=== PATIENT | female | born 1980 | race Caucasian/White ===

== ENCOUNTER 2016-07-27 09:45 | Emergency (ER) | payer OTHER ==
[~2016-07-27 09:45] MED LIST: ACET500T57 PO; ALBUAER2 INH; OMEP40CA PO
[2016-07-27 10:14] VITALS: TEMP 36.5; Ht 157.5 cm
[2016-07-27] MEDS ORDERED: ONDANSETRON INJ 2 MG/ML 2 ML VIAL IV STA (10:53)
[2016-07-27] MEDS ORDERED: SODIUM CHLORIDE 0.9% 1000ML 1,000 ML IV STA (10:53)
[2016-07-27 11:14] LABS: BASO % 0.2 %; BASO ABS # 0.02 K/uL (0-0.2); COMPLETE YES; EOS % 1.7 %; HEMATOCRIT 38.4 % (37-47); IG% 0.3 %; LYMPH % 7.4 %; LYMPH ABS # 0.92 K/uL (1.2-3.4); MEAN CORPUSCULAR HEMOGLOBIN 27.4 pg (25-34); MEAN CORPUSCULAR HGB CONC 32.6 g/dl (32-36); MEAN PLATELET VOLUME 9.1 fL (7.4-10.4); MONO % 5.6 %; NEUT % 84.8 %; PLATELET COUNT 467 K/uL (130-400); RED BLOOD COUNT 4.57 M/uL (4.2-5.4); WHITE BLOOD COUNT 12.45 K/uL (4.8-10.8)
[2016-07-27 11:23] LABS: ALT/SGPT 40 U/L (12-78); BLOOD UREA NITROGEN 11 mg/dl (7-18); CALCIUM 8.6 mg/dl (8.5-10.1); CARBON DIOXIDE 21 mmol/L (21-32); CHLORIDE 106 mmol/L (98-107); GLUCOSE 107 mg/dl (70-99); SODIUM 139 mmol/L (136-145)
[2016-07-27 11:26] LABS: ALB/GLOB RATIO 0.9 (0.9-2); ALKALINE PHOSPHATASE 77 U/L (45-117); AST/SGOT 23 U/L (15-37)
[2016-07-27 11:38] LABS: URINE APPEARANCE CLEAR (CLEAR); URINE BILIRUBIN NEG (NEG); URINE COLOR YELLOW; URINE NITRITE NEG (NEG); URINE SPECIFIC GRAVITY 1.021 (1.000-1.030); UROBILINOGEN NEG (NEG); ZZUR CULT IF INDIC CLEAN CATCH NO
[2016-07-27 11:47] LABS: MANUAL MICROSCOPIC REQUIRED? NO; REVIEW REQ? NO
--- NOTE | 2016-07-27 12:06 | DIAGNOSTIC IMAGING REPORT ---
ABDOMINAL ULTRASOUND, RIGHT UPPER QUADRANT HISTORY: Right upper quadrant pain. History of cholecystectomy.. COMPARISON: CT of the abdomen and pelvis August 24, 2015 and right upper quadrant ultrasound August 22, 2015. FINDINGS: Liver morphology is normal. Slight dilatation of the common bile duct is similar to prior exam of August 22, 2015, measuring 9 mm. Bowel or stomach is likely within the cholecystectomy bed. An operative bed fluid collection is considered less likely. There is borderline dilatation of the main pancreatic duct which measures 4 mm. The pancreatic head and tail are obscured. This study is compromise by suboptimal penetration. There is no right hydronephrosis. IMPRESSION: 1. Mild biliary ductal dilatation status post cholecystectomy. This is similar to exam of August 22, 2015. 2. Fluid-filled structure within the cholecystectomy bed that likely reflects bowel or stomach. An operative bed fluid collection is considered less likely. 3. Largely obscured pancreas. Electronically signed by: Kody Rodney M.D. 07/27/2016 12:04 PM Dictated Date/Time: 07/27/2016 12:01 PM
--- NOTE | 2016-07-27 13:00 | EMERGENCY ROOM VISIT NOTE ---
History First contact with patient: 10:42 Chief Complaint: ABDOMINAL PAIN Stated Complaint: SEVERE STOMACH AND RIGHT SIDE PAIN Nursing Triage Summary: Patient c/o pain in RUQ of abdomen that radiates into back that started at 0300 this morning. C/o nausea. States has had emetic episodes, last at 0930. Patient called GI doctor who told patient to come to ED. Unable to eat this AM. History of Present Illness The patient is a 36 year old female who presents to the Emergency Room with complaints of right upper quadrant abdominal pain which started suddenly approximately 6 hours ago. She reports that the pain radiates from the right upper quadrant into the back and has been worsening since its onset. She has had vomiting associated with the pain. She has been unable to keep anything down this morning due to the nausea and the pain. She reports that she called her business intelligence manager today who directed her to come to the emergency department. She does have a history of prior cholecystectomy and appendectomy but states she occasionally has pancreatitis due to common bile duct dilatation. She denies any fevers/chills, changes in bowel movements, chest pain, shortness of breath or urinary symptoms. She rates her discomfort a 10/ 10 and has not taken any medication for the pain. Review of Systems A complete 10-point Review of Systems was discussed with the patient, with pertinent positives and negatives listed in the History of Present Illness. All remaining Review of Systems questions can be considered negative unless otherwise specified. Past Medical/Surgical History Medical Problems: (1) Acute pancreatitis (2) Ankle sprain (3) Asthma (4) BENIGN HYPERTENSION (5) Bipolar disorder (6) Essential hypertension (7) External otitis of right ear (8) Gastric polyp (9) History of adenomatous polyp of colon (10) Hypokalemia (11) IBS (irritable bowel syndrome) (12) Injury of right ankle (13) Intermittent palpitations (14) Knee contusion (15) Left ankle injury (16) Left knee injury (17) Pain following oral surgery (18) PERSONAL HISTORY OF GESTATIONAL DIABETES (19) PID (pelvic inflammatory disease) (20) Pyelonephritis, acute (21) Wrist injury Surgical Problems: (1) Hx of appendectomy (2) s/p cholecystectomy (3) s/p EGD (4) s/p partial colectomy (5) S/P removal of left ovary Family History FHx: cancer Social History Smoking Status: Current Every Day Smoker Alcohol Use: none Drug Use: none Marital Status: Housing Status: lives with family Occupation Status: disabled Current/Historical Medications Scheduled Bupropion (Wellbutrin Sr), 200 MG PO QAM Bupropion (Wellbutrin Sr), 200 MG PO DAILY@1400 Clonazepam (Clonazepam), 0.5 MG PO TID Omeprazole (Prilosec), 40 MG PO DAILY Oxcarbazepine (Trileptal), 300 MG PO BID Scheduled PRN Albuterol (Ventolin), 2 PUFFS INH Q4H PRN for Wheezing Promethazine HCl (Promethazine HCl), 25 MG PO Q4H PRN for Nausea or Vomiting Allergies Coded Allergies: Amoxicillin (Verified Allergy, Intermediate, hives, 07/27/16) Aspirin (Verified Allergy, Intermediate, PT. GETS HIVES, 07/27/16) Hydromorphone (Verified Allergy, Intermediate, FELT THROAT DISCOMFORT, SWITCHED TO MSO4 & FINE, 07/27/16) PER PHYSICIAN (DR. TRIVEDI) ON 06/03/10 @ 0910. AJ Ketorolac Tromethamine (Verified Allergy, Intermediate, ulcers in stomach , 07/27/16) Ibuprofen (Verified Allergy, Mild, 07/27/16) Tramadol (Verified Allergy, Mild, headaches, 07/27/16) Adhesives (Verified Allergy, Unknown, ERYTHEMA WITH "ADHESIVE TAPE", ) Ciprofloxacin (Verified Allergy, Unknown, hives, 07/27/16) Clavulanic Acid (Verified Allergy, Unknown, RASH + HIVES, Augmentin, ) Fentanyl (Verified Allergy, Unknown, THROAT TIGHTENS, 07/27/16) Hydralazine (Verified Allergy, Unknown, -, 07/27/16) Meperidine (Verified Allergy, Unknown, UNKN, 07/27/16) Metoclopramide (Verified Allergy, Unknown, SHAKING/TREMORS, 07/27/16) PT IS ALLERGIC PER DR. FOSTER Penicillins (Verified Allergy, Unknown, RASH,HIVES ALSO AUGMENTIN, 07/27) PT. STATES SHE GETS A RASH/HIVES FROM PCN Quinolones (Verified Allergy, Unknown, RASH, 07/27/16) Diphenhydramine (Verified Adverse Reaction, Intermediate, anxiety, 07/27/16 ) Prednisone (Verified Adverse Reaction, Unknown, worsening anxiety, 07/27/16 ) pt Physical Exam Vital Signs Date Time Temp Pulse Resp B/P Pulse Ox O2 Delivery O2 Flow Rate FiO2 07/27/16 13:10 85 19 119/82 97 07/27/16 12:05 86 22 127/89 99 Room Air 07/27/16 10:14 36.5 100 20 129/102 99 Room Air Physical Exam VITALS: Vitals are noted on the nurse's note and reviewed by myself. Vital signs stable. GENERAL: This is a 36-year-old female, in no acute distress, nondiaphoretic, well-developed well-nourished. SKIN: Capillary reflex less than 2 seconds. HEENT: Normocephalic. PERRLA. EOMI. Nares patent. Mucous membranes moist. Neck is supple without nuchal rigidity. HEART: Regular rate and rhythm without murmurs gallops or rubs. LUNGS: Clear to auscultation bilaterally without wheezes, rales or rhonchi. ABDOMEN: Positive bowel sounds x 4. There is tenderness to palpation of the right upper quadrant. Maguire sign negative. No guarding or rebound tenderness. NEURO: Patient was alert and oriented to person place and time. Medical Decision & Procedures ER Provider Diagnostic Interpretation: ABDOMINAL ULTRASOUND, RIGHT UPPER QUADRANT HISTORY: Right upper quadrant pain. History of cholecystectomy.. COMPARISON: CT of the abdomen and pelvis August 24, 2015 and right upper quadrant ultrasound August 22, 2015. FINDINGS: Liver morphology is normal. Slight dilatation of the common bile duct is similar to prior exam of August 22, 2015, measuring 9 mm. Bowel or stomach is likely within the cholecystectomy bed. An operative bed fluid collection is considered less likely. There is borderline dilatation of the main pancreatic duct which measures 4 mm. The pancreatic head and tail are obscured. This study is compromise by suboptimal penetration. There is no right hydronephrosis. IMPRESSION: 1. Mild biliary ductal dilatation status post cholecystectomy. This is similar to exam of August 22, 2015. 2. Fluid-filled structure within the cholecystectomy bed that likely reflects bowel or stomach. An operative bed fluid collection is considered less likely. 3. Largely obscured pancreas. Laboratory Results 07/27/16 10:44 Red Blood Count 4.57, Mean Corpuscular Volume 84.0, Mean Corpuscular Hemoglobin 27.4, Mean Corpuscular Hemoglobin Concent 32.6, Mean Platelet Volume 9.1, Neutrophils (%) (Auto) 84.8, Lymphocytes (%) (Auto) 7.4, Monocytes (%) (Auto) 5.6, Eosinophils (%) (Auto) 1.7, Basophils (%) (Auto) 0.2, Neutrophils # (Auto) 10.56, Lymphocytes # (Auto) 0.92, Monocytes # (Auto) 0.70, Eosinophils # (Auto) 0.21, Basophils # (Auto) 0.02 07/27/16 10:44 Test 07/27/16 10:30 07/27/16 10:44 Urine Color YELLOW Urine Appearance CLEAR (CLEAR) Urine pH 5.0 (4.5-7.5) Urine Specific Gunter 1.021 (1.000-1.030) Urine Protein NEG (NEG) Urine Glucose (UA) NEG (NEG) Urine Ketones NEG (NEG) Urine Occult Blood NEG (NEG) Urine Nitrite NEG (NEG) Urine Bilirubin NEG (NEG) Urine Urobilinogen NEG (NEG) Urine Leukocyte Esterase NEG (NEG) Urine Test NEG (NEG) White Blood Count 12.45 K/uL (4.8-10.8) Red Blood Count 4.57 M/uL (4.2-5.4) Hemoglobin 12.5 g/dL (12.0-16.0) Hematocrit 38.4 % (37-47) Mean Corpuscular Volume 84.0 fL (80-100) Mean Corpuscular Hemoglobin 27.4 pg (25-34) Mean Corpuscular Hemoglobin Concent 32.6 g/dl (32-36) Platelet Count 467 K/uL (130-400) Mean Platelet Volume 9.1 fL (7.4-10.4) Neutrophils (%) (Auto) 84.8 % Lymphocytes (%) (Auto) 7.4 % Monocytes (%) (Auto) 5.6 % Eosinophils (%) (Auto) 1.7 % Basophils (%) (Auto) 0.2 % Neutrophils # (Auto) 10.56 K/uL (1.4-6.5) Lymphocytes # (Auto) 0.92 K/uL (1.2-3.4) Monocytes # (Auto) 0.70 K/uL (0.11-0.59) Eosinophils # (Auto) 0.21 K/uL (0-0.5) Basophils # (Auto) 0.02 K/uL (0-0.2) RDW Standard Deviation 40.7 fL (36.4-46.3) RDW Coefficient of Variation 13.4 % (11.5-14.5) Immature Granulocyte % (Auto) 0.3 % Immature Granulocyte # (Auto) 0.04 K/uL (0.00-0.02) Anion Gap 12.0 mmol/L (3-11) Estimated GFR () 96.7 Estimated GFR (Non- 83.4 BUN/Creatinine Ratio 12.0 (10-20) Calcium Level 8.6 mg/dl (8.5-10.1) Total Bilirubin 0.1 mg/dl (0.2-1) Aspartate Amino Transf (AST/SGOT) 23 U/L (15-37) Alanine Aminotransferase (ALT/SGPT) 40 U/L (12-78) Alkaline Phosphatase 77 U/L (45-117) Total Protein 7.6 gm/dl (6.4-8.2) Albumin 3.7 gm/dl (3.4-5.0) Globulin 3.9 gm/dl (2.5-4.0) Albumin/Globulin Ratio 0.9 (0.9-2) Lipase 515 U/L (73-393) Medications Administered Medications (Trade) Dose Ordered Sig/Farooq Route Start Time Stop Time Status Last Admin Dose Admin Sodium Chloride (Nss 1000ml) 1,000 ml @ 999 mls/hr Q1H1M STAT IV 07/27/16 10:53 07/27/16 11:53 DC 07/27/16 12:05 999 MLS/HR Ondansetron HCl (Zofran Inj) 4 mg NOW STAT IV 07/27/16 10:53 07/27/16 10:56 DC 07/27/16 12:05 4 MG Medical Decision Differential diagnosis includes pancreatitis, hepatitis, gastroenteritis, colitis, gastritis, among others. The patient was evaluated as above. Labs were drawn and IV access was obtained. Imaging studies were performed and read by radiology as above. The patient was medicated with 1 L normal saline solution and 4 mg Zofran IV. The patient was reassessed multiple times during their stay in the emergency department and remained in stable condition. The patient is a and [id number] who presents today complaining of severe right upper quadrant abdominal pain. Labs revealed a mild leukocytosis consistent with stress or vomiting. There was no anemia or concern any of the joint abnormalities. LFTs and bilirubin were not elevated. Urinalysis was not suggestive of infection. Urine was negative. Right upper quadrant ultrasound did not show any evidence of acute inflammatory changes. Lipase was minimally elevated, but does not need criteria for pancreatitis. Review of the patient's records does show that she has been here multiple times in the past for abdominal pain and has had negative workups. I do not see anything that suggests any acute infectious or inflammatory findings within the abdomen. I did speak with the on-call business intelligence manager, who does not feel that the patient has pancreatitis and recommended that she follow up with her business intelligence manager within the next few days. I did discuss these findings and the treatment plan with the patient. She will return sooner for any new/ concerning symptoms, otherwise she will follow-up with her primary care provider and gastroenterology. Based on the patient's presentation, lab results, and imaging studies, I feel the patient is stable for outpatient treatment. Discharge instructions were reviewed with the patient. The patient verbalized understanding of my assessment and treatment plan and was discharged home in good condition. Impression Primary Impression: Right upper quadrant abdominal pain Departure Information Dispostion Home / Self-Care Condition GOOD Referrals Perez Richter M.D. (PCP) Jorden Cat, DO Patient Instructions My [facility] Additional Instructions You have been treated in the Emergency Department for Abdominal Pain. Laboratory results and imaging studies have ruled out any emergent causes for your abdominal pain which would warrant admission or surgery. For pain control, you can use the following [id number] medicines (if >12 yo): - Regular strength (325mg/tab) Tylenol (acetaminophen) 2 tabs every 4-6 hours as needed. Do not exceed 12 tablets in a 24 hour period. Avoid taking more than 4 grams (4000 mg) of Tylenol per day. This includes any other sources of acetaminophen you may take on a regular basis. - Regular strength (200 mg/tab) Advil (ibuprofen) 1-2 tabs every 4-6 hours as needed. Do not exceed a dose of 3200 mg per day. Drink plenty of water and stay well hydrated. Follow-up with your primary care provider business intelligence manager further evaluation of your abdominal pain. Return to the emergency department if your symptoms persist despite treatment plan outlined above or if the following symptoms occur: increased fevers, chills , worsening nausea/vomiting, blood in your stool or urine.
[2016-07-27 13:10] VITALS: BP 119/82; PULSE 85; O2SAT 97
[2017-01-12] MEDS ORDERED: BUPR200T2 PO ×2 (14:29→20:58)
[2017-01-12] MEDS ORDERED: PROM25TA16 PO (15:17)
[2017-01-12] MEDS ORDERED: KLN5X PO (15:36)
[2017-01-12] MEDS ORDERED: OXCA300T2 PO (16:01)
[2017-01-12] MEDS ORDERED: ACET-1256 PO (17:13)
== END 2016-07-27 13:10 | disposition home or self-care (01) ==
LOC: C.EDB 09:46
DX: R10.11 Right upper quadrant pain (principal); I10 Essential (primary) hypertension; F31.9 Bipolar disorder, unspecified; F17.210 Nicotine dependence, cigarettes, uncomplicated

== ENCOUNTER 2016-09-27 15:24 | Emergency (ER) | payer OTHER ==
[~2016-09-27] VITALS: Ht 157.5 cm; Wt 75.3 kg
[~2016-09-27 15:24] MED LIST changes: -ACET500T57 PO
[2016-09-27 15:51] VITALS: Ht 157.5 cm; Wt 75.3 kg
[2016-09-27] MEDS ORDERED: BENZ100C84 PO (17:12)
[2016-09-27] MEDS ORDERED: AZITTAB PO (17:12)
[2016-09-27] MEDS ORDERED: ALBUT/IPRATROP 3MG/0.5MG NEB 3 ML VIAL INH ONE (17:15)
[2016-09-27] MEDS ORDERED: ACETAMINOPHEN 500 MG TAB PO STA (17:29)
--- NOTE | 2016-09-27 17:32 | DIAGNOSTIC IMAGING REPORT ---
CHEST 2 VIEWS ROUTINE CLINICAL HISTORY: Cough. Fever. Dyspnea COMPARISON STUDY: No previous studies for comparison. FINDINGS: The bones soft tissues and hemidiaphragms are normal. The cardiomediastinal silhouette is normal. The lungs are clear. The pulmonary vasculature is normal. IMPRESSION: Negative chest. Electronically signed by: Perez Mirza M.D. 09/27/2016 5:31 PM Dictated Date/Time: 09/27/2016 5:31 PM
[2016-09-27] MEDS ORDERED: VNTHFA/IN INH (18:10)
[2016-09-27 18:21] VITALS: BP 121/76; PULSE 88; TEMP 37; O2SAT 98
--- NOTE | 2016-09-27 21:47 | EMERGENCY ROOM VISIT NOTE ---
History First contact with patient: 16:51 Chief Complaint: COUGH Stated Complaint: COUGH, HEAD PAIN Nursing Triage Summary: pt reports cough congestion X 1 week , PCP on Th given cough meds and zpak, not feeling better History of Present Illness The patient is a 36 year old female who presents to the Emergency Room with complaints of persistent cough and chest congestion for the past week. The patient was seen and evaluated by her primary care physician this week and started on Zithromax. She was also given Tessalon Perles. The patient does not have worsening of her symptoms, but she states that she is not improving, prompting her to come to the ER. The patient has not had fever at home. She is reportedly taking her medications as prescribed. She states that time her cough will give her a headache, and she is requesting something for pain. She rates her discomfort a 9/10. Review of Systems More than 10 systems were reviewed and otherwise negative with the exception of history of present illness. Past Medical/Surgical History Medical Problems: (1) Acute pancreatitis (2) Ankle sprain (3) Asthma (4) BENIGN HYPERTENSION (5) Bipolar disorder (6) Essential hypertension (7) External otitis of right ear (8) Gastric polyp (9) History of adenomatous polyp of colon (10) Hypokalemia (11) IBS (irritable bowel syndrome) (12) Injury of right ankle (13) Intermittent palpitations (14) Knee contusion (15) Left ankle injury (16) Left knee injury (17) Pain following oral surgery (18) PERSONAL HISTORY OF GESTATIONAL DIABETES (19) PID (pelvic inflammatory disease) (20) Pyelonephritis, acute (21) Wrist injury Surgical Problems: (1) Hx of appendectomy (2) s/p cholecystectomy (3) s/p EGD (4) s/p partial colectomy (5) S/P removal of left ovary Family History FHx: cancer Social History Smoking Status: Current Every Day Smoker Alcohol Use: none Drug Use: none Marital Status: Housing Status: lives with family Occupation Status: disabled Current/Historical Medications Scheduled Albuterol Hfa (Ventolin Hfa), 2-4 PUFFS INH Q6H Azithromycin (Zithromax Z-Roni), 1 PKT PO UD Benzonatate (Tessalon Perles), 1 CAP PO TID Bupropion (Wellbutrin Sr), 200 MG PO QAM Bupropion (Wellbutrin Sr), 200 MG PO DAILY@1400 Clonazepam (Clonazepam), 0.5 MG PO TID Omeprazole (Prilosec), 40 MG PO DAILY Oxcarbazepine (Trileptal), 300 MG PO BID Scheduled PRN Acetaminophen (Tylenol), 2 TAB PO Q6 PRN for Pain Albuterol (Ventolin), 2 PUFFS INH Q4H PRN for Wheezing Promethazine HCl (Promethazine HCl), 25 MG PO Q4H PRN for Nausea or Vomiting Allergies Coded Allergies: Amoxicillin (Verified Allergy, Intermediate, hives, 09/27/16) Aspirin (Verified Allergy, Intermediate, PT. GETS HIVES, 09/27/16) Dicyclomine (Unverified Allergy, Intermediate, RASH, 09/27/16) Hydromorphone (Verified Allergy, Intermediate, FELT THROAT DISCOMFORT, SWITCHED TO MSO4 & FINE, 09/27/16) PER PHYSICIAN (DR. TRIVEDI) ON 06/03/10 @ 0910. AJ Ketorolac Tromethamine (Verified Allergy, Intermediate, ulcers in stomach , 09/27/16) Ibuprofen (Verified Allergy, Mild, 09/27/16) Tramadol (Verified Allergy, Mild, headaches, 09/27/16) Adhesives (Verified Allergy, Unknown, ERYTHEMA WITH "ADHESIVE TAPE", ) Ciprofloxacin (Verified Allergy, Unknown, hives, 09/27/16) Clavulanic Acid (Verified Allergy, Unknown, RASH + HIVES, Augmentin, ) Fentanyl (Verified Allergy, Unknown, THROAT TIGHTENS, 09/27/16) Hydralazine (Verified Allergy, Unknown, -, 09/27/16) Meperidine (Verified Allergy, Unknown, UNKN, 09/27/16) Metoclopramide (Verified Allergy, Unknown, SHAKING/TREMORS, 09/27/16) PT IS ALLERGIC PER DR. FOSTER Penicillins (Verified Allergy, Unknown, RASH,HIVES ALSO AUGMENTIN, 09/27) PT. STATES SHE GETS A RASH/HIVES FROM PCN Quinolones (Verified Allergy, Unknown, RASH, 09/27/16) Diphenhydramine (Verified Adverse Reaction, Intermediate, anxiety, 09/27/16 ) Prednisone (Verified Adverse Reaction, Unknown, worsening anxiety, 09/27/16 ) pt Physical Exam Vital Signs Date Time Temp Pulse Resp B/P Pulse Ox O2 Delivery O2 Flow Rate FiO2 09/27/16 18:21 37.0 88 18 121/76 98 09/27/16 15:51 37.0 97 18 137/97 98 Room Air Pain Rating (0-10): 4.0 Physical Exam VITALS: Vitals are noted on the nurse's note and reviewed by myself. Vital signs stable. GENERAL: Well-developed, well-nourished, white female, who is in no acute distress and resting comfortably. Patient is cooperative with the examination. HEAD: Normocephalic atraumatic. EARS: External ear normal. External auditory canals clear, tympanic membranes pearly britton without erythema or effusion bilaterally. EYES: Pupils equal round and reactive to light and accommodation. Conjunctivae without injection, sclerae without icterus. Extraocular movements intact. NOSE: Patent, turbinates without inflammation or discharge. MOUTH: Mucous membranes moist. Tonsils are not enlarged. Pharynx without erythema, blood, or exudate. Uvula midline. Airway patent. NECK: Supple without nuchal rigidity. No lymphadenopathy. No thyromegaly. Cervical spine is nontender. HEART: Regular rate and rhythm without murmurs gallops or rubs. LUNGS: Clear to auscultation bilaterally without wheezes, rales or rhonchi. No retractions or accessory muscle use. Medical Decision & Procedures ER Provider Diagnostic Interpretation: CHEST 2 VIEWS ROUTINE CLINICAL HISTORY: Cough. Fever. Dyspnea COMPARISON STUDY: No previous studies for comparison. FINDINGS: The bones soft tissues and hemidiaphragms are normal. The cardiomediastinal silhouette is normal. The lungs are clear. The pulmonary vasculature is normal. IMPRESSION: Negative chest. Medications Administered Medications (Trade) Dose Ordered Sig/Farooq Route Start Time Stop Time Status Last Admin Dose Admin Albuterol/ Ipratropium (Duoneb) 3 ml NOW ONCE INH 09/27/16 17:15 09/27/16 17:16 DC 09/27/16 17:24 3 ML ED Course Physical exam and history were performed. Nursing notes and EMR were reviewed. Patient appears to have persistent cough symptoms for the past week. She was reportedly diagnosed with bronchitis as an outpatient. On examination she does not appear toxic or in significant distress. She does have a mild dry cough, and I elected to perform chest x-ray and provide a DuoNeb treatment. The patient requested pain medication for her headache, and she was given 1 g oral Tylenol. The patient was reevaluated multiple times throughout the course of her stay. She did have some improvement of her breathing after a DuoNeb. Chest x-ray does not show acute pneumonia or other significant findings. Overall the patient appears stable for discharge home. I do suspect that she has an improving bronchitis. She does have an albuterol inhaler at home, but has not been using this. She states that she is almost out of this medication, and I will provide her a refill. The patient went on to request codeine based cough syrup for her persistent cough. I reminded the patient that she is on a no narcotic treatment plan at this facility, and we would not be able to provide this to her. She should follow with her primary care physician for further management. She was otherwise invited back to the ER with any new, worsening, or concerning symptoms. The chart was completed utilizing [employer] Speech Voice Recognition Software. Grammatical errors, random word insertions, pronoun errors, and incomplete sentences are an occasional consequence of this system due to software limitations, ambient noise, and hardware issues. Any formal questions or concerns about the content, text, or information contained within the body of this dictation should be directly addressed to the provider for clarification. . Medical Decision Differential diagnosis: Etiologies such as viral syndrome, otitis, pharyngitis, pneumonia, influenza, meningitis, urinary tract infection, sepsis, bacteremia, as well as others were entertained. Impression Primary Impression: Acute bronchitis Departure Information Dispostion Home / Self-Care Condition GOOD Prescriptions Albuterol Hfa (VENTOLIN HFA) 200 Puffs/09939 Mcg Aers 2-4 PUFFS INH Q6H, #1 INHALER Prov: Ari Huynh PA-C 09/27/16 Referrals Mckenzie Jennings D.O. (PCP) Forms HOME CARE DOCUMENTATION FORM, IMPORTANT VISIT INFORMATION Patient Instructions My [facility] Additional Instructions You were seen and evaluated today on an emergency basis only. This is not a substitute for, or an effort to provide, complete comprehensive medical care. It is not possible to recognize and treat all injuries or illnesses in a single emergency department visit. For this reason it is recommended that you followup with your primary care physician this week with any ongoing or persistent symptoms. Use your albuterol inhaler 2 puffs every 6 hours as needed for coughing and wheezing. Continue your medications as otherwise previously prescribed. You are welcome to return to the emergency department anytime with new, worsening, or concerning symptoms.
[2017-01-12] MEDS ORDERED: BUPR200T2 PO ×2 (14:29→20:58)
[2017-01-12] MEDS ORDERED: PROM25TA16 PO (15:17)
[2017-01-12] MEDS ORDERED: KLN5X PO (15:36)
[2017-01-12] MEDS ORDERED: OXCA300T2 PO (16:01)
[2017-01-12] MEDS ORDERED: ACET-1256 PO (17:13)
== END 2016-09-27 18:15 | disposition home or self-care (01) ==
LOC: C.EDB 15:26 → C.EDD 18:15
DX: J20.9 Acute bronchitis, unspecified (principal); I10 Essential (primary) hypertension; J45.909 Unspecified asthma, uncomplicated; K85.90 Acute pancreatitis without necrosis or infection, unspecified; F31.9 Bipolar disorder, unspecified; Z86.010 Personal history of colon polyps; E87.6 Hypokalemia; K58.9 Irritable bowel syndrome, unspecified; N73.9 Female pelvic inflammatory disease, unspecified; N10 Acute pyelonephritis; Z80.9 Family history of malignant neoplasm, unspecified; F17.210 Nicotine dependence, cigarettes, uncomplicated; Z79.899 Other long term (current) drug therapy

== ENCOUNTER 2016-11-16 21:32 | Emergency (ER) | payer OTHER ==
[~2016-11-16] VITALS: Ht 157.5 cm; Wt 76.8 kg
[~2016-11-16 21:32] MED LIST changes: +AZITTAB PO; +BENZ100C84 PO; +VNTHFA/IN INH
[2016-11-16 21:35] VITALS: TEMP 36.8; Ht 157.5 cm; Wt 76.8 kg
[2016-11-16] MEDS ORDERED: SODIUM CHLORIDE 0.9% 1000ML 1,000 ML IV ONE (22:00)
[2016-11-16 22:18] LABS: BASO % 0.4 %; BASO ABS # 0.03 K/uL (0-0.2); COMPLETE YES; EOS % 4.3 %; HEMATOCRIT 38.1 % (37-47); IG% 0.4 %; LYMPH % 30.6 %; LYMPH ABS # 2.35 K/uL (1.2-3.4); MEAN CELL VOLUME 83.6 fL (80-100); MEAN CORPUSCULAR HEMOGLOBIN 26.3 pg (25-34); MEAN CORPUSCULAR HGB CONC 31.5 g/dl (32-36); MEAN PLATELET VOLUME 8.8 fL (7.4-10.4); MONO % 8.2 %; NEUT % 56.1 %; PLATELET COUNT 500 K/uL (130-400); RED BLOOD COUNT 4.56 M/uL (4.2-5.4); WHITE BLOOD COUNT 7.67 K/uL (4.8-10.8)
[2016-11-16 22:38] LABS: MANUAL MICROSCOPIC REQUIRED? NO; REVIEW REQ? NO; URINE APPEARANCE CLOUDY (CLEAR); URINE BILIRUBIN NEG (NEG); URINE COLOR DK YELLOW; URINE EPITHELIAL CELL AUTO >30 /lpf (0-5); URINE NITRITE NEG (NEG); UROBILINOGEN NEG (NEG); ZZUR CULT IF INDIC CLEAN CATCH YES
--- NOTE | 2016-11-16 22:42 | DIAGNOSTIC IMAGING REPORT ---
KUB CLINICAL HISTORY: vague low abd pain pain COMPARISON STUDY: No previous studies for comparison. FINDINGS: The soft tissues, psoas shadows, renal outlines and intestinal gas pattern appear normal. There is no evidence for bowel obstruction. No abnormal abdominal calcifications are seen. IMPRESSION: Normal study. Electronically signed by: Perez Mirza M.D. 11/16/2016 10:41 PM Dictated Date/Time: 11/16/2016 10:41 PM
--- NOTE | 2016-11-16 22:56 | DIAGNOSTIC IMAGING REPORT ---
EXAMINATION: PELVIC ULTRASOUND CLINICAL HISTORY: Low abd/pelvic pain PAIN COMPARISON STUDY: None FINDINGS: The uterus measured 9 cm. The endometrial stripe measured 12 mm. The right ovary measured 3.7 cm with normal vascular flow. 2.9 cm right ovarian cyst. The left ovary measured surgically removed. There is no ultrasonographic evidence of ovarian torsion. It should be noted that ovarian torsion can be present with normal Doppler ultrasonographic findings. There was no evidence of pathologic free pelvic fluid. IMPRESSION: 1. Status post left ovarian removal. 2. 2.9 cm right ovarian cyst. 3. Otherwise negative study Electronically signed by: Perez Mirza M.D. 11/16/2016 10:54 PM Dictated Date/Time: 11/16/2016 10:53 PM
[2016-11-16 23:03] LABS: BUN/CREATININE RATIO 20.3 (10-20); CALCIUM 8.7 mg/dl (8.5-10.1); CREATININE 0.9 mg/dl (0.60-1.20); POTASSIUM 3.8 mmol/L (3.5-5.1)
[2016-11-16 23:04] LABS: BENZODIAZEPINE, URINE NEG (NEG); COCAINE,URINE NEG (NEG); PHENCYCLIDINE, URINE NEG (NEG)
[2016-11-17 00:28] VITALS: BP 115/84; PULSE 63; O2SAT 99
--- NOTE | 2016-11-17 01:49 | EMERGENCY ROOM VISIT NOTE ---
History First contact with patient: 21:40 Chief Complaint: PELVIC PAIN Stated Complaint: PELVIC/ABD/BACK PAIN History of Present Illness The patient is a 36 year old female who presents to the Emergency Room with complaints of very low abdominal/pelvic pain slowly worsening over the past day. The patient reports a history of ovarian cysts, and states this feels similar to those episodes. She rates her pain a 10/10 that is not relieved with Tylenol. She has not had vaginal drainage or discharge. She denies chance of . The patient has not had fever or chills. No dysuria. Review of Systems More than 10 systems were reviewed and otherwise negative with the exception of history of present illness. Past Medical/Surgical History Medical Problems: (1) Acute pancreatitis (2) Ankle sprain (3) Asthma (4) BENIGN HYPERTENSION (5) Bipolar disorder (6) Essential hypertension (7) External otitis of right ear (8) Gastric polyp (9) History of adenomatous polyp of colon (10) Hypokalemia (11) IBS (irritable bowel syndrome) (12) Injury of right ankle (13) Intermittent palpitations (14) Knee contusion (15) Left ankle injury (16) Left knee injury (17) Pain following oral surgery (18) PERSONAL HISTORY OF GESTATIONAL DIABETES (19) PID (pelvic inflammatory disease) (20) Pyelonephritis, acute (21) Wrist injury Surgical Problems: (1) Hx of appendectomy (2) s/p cholecystectomy (3) s/p EGD (4) s/p partial colectomy (5) S/P removal of left ovary Family History FHx: cancer Social History Smoking Status: Current Every Day Smoker Alcohol Use: none Drug Use: none Marital Status: Housing Status: lives with family Occupation Status: disabled Current/Historical Medications Scheduled Bupropion (Wellbutrin Sr), 200 MG PO QAM Bupropion (Wellbutrin Sr), 200 MG PO DAILY@1400 Clonazepam (Clonazepam), 0.5 MG PO TID Omeprazole (Prilosec), 40 MG PO DAILY Oxcarbazepine (Trileptal), 300 MG PO BID Scheduled PRN Acetaminophen (Tylenol), 1,000 MG PO Q6 PRN for Pain Albuterol (Ventolin), 2 PUFFS INH Q4H PRN for Wheezing Promethazine HCl (Promethazine HCl), 25 MG PO Q4H PRN for Nausea or Vomiting Allergies Coded Allergies: Amoxicillin (Verified Allergy, Intermediate, hives, 09/27/16) Aspirin (Verified Allergy, Intermediate, PT. GETS HIVES, 09/27/16) Dicyclomine (Unverified Allergy, Intermediate, RASH, 09/27/16) Hydromorphone (Verified Allergy, Intermediate, FELT THROAT DISCOMFORT, SWITCHED TO MSO4 & FINE, 09/27/16) PER PHYSICIAN (DR. TRIVEDI) ON 06/03/10 @ 0910. AJ Ketorolac Tromethamine (Verified Allergy, Intermediate, ulcers in stomach , 09/27/16) Ibuprofen (Verified Allergy, Mild, 09/27/16) Tramadol (Verified Allergy, Mild, headaches, 09/27/16) Adhesives (Verified Allergy, Unknown, ERYTHEMA WITH "ADHESIVE TAPE", ) Ciprofloxacin (Verified Allergy, Unknown, hives, 09/27/16) Clavulanic Acid (Verified Allergy, Unknown, RASH + HIVES, Augmentin, ) Fentanyl (Verified Allergy, Unknown, THROAT TIGHTENS, 09/27/16) Hydralazine (Verified Allergy, Unknown, -, 09/27/16) Meperidine (Verified Allergy, Unknown, UNKN, 09/27/16) Metoclopramide (Verified Allergy, Unknown, SHAKING/TREMORS, 09/27/16) PT IS ALLERGIC PER DR. FOSTER Penicillins (Verified Allergy, Unknown, RASH,HIVES ALSO AUGMENTIN, 09/27) PT. STATES SHE GETS A RASH/HIVES FROM PCN Quinolones (Verified Allergy, Unknown, RASH, 09/27/16) Diphenhydramine (Verified Adverse Reaction, Intermediate, anxiety, 09/27/16 ) Prednisone (Verified Adverse Reaction, Unknown, worsening anxiety, 09/27/16 ) pt Physical Exam Vital Signs Date Time Temp Pulse Resp B/P Pulse Ox O2 Delivery O2 Flow Rate FiO2 11/17/16 00:28 63 20 115/84 99 Room Air 11/16/16 23:43 68 20 132/87 100 Room Air 11/16/16 21:35 36.8 93 20 136/83 99 Room Air Pain Rating (0-10): 8.0 Physical Exam VITALS: Vitals are noted on the nurse's note and reviewed by myself. Vital signs stable. GENERAL: Well-developed, well-nourished, white female, who is in no acute distress and resting comfortably. Patient is cooperative with the examination. HEAD: Normocephalic atraumatic. HEART: Regular rate and rhythm without murmurs gallops or rubs. LUNGS: Clear to auscultation bilaterally without wheezes, rales or rhonchi. No retractions or accessory muscle use. ABDOMEN: Positive normal bowel sounds x 4. Soft, nontender, without masses or organomegaly. No guarding or rebound tenderness. PELVIC: Patient defers MUSCULOSKELETAL: No muscle atrophy, erythema, or edema noted. Full range of motion without joint tenderness in all extremities. Medical Decision & Procedures ER Provider Diagnostic Interpretation: KUB CLINICAL HISTORY: vague low abd pain pain COMPARISON STUDY: No previous studies for comparison. FINDINGS: The soft tissues, psoas shadows, renal outlines and intestinal gas pattern appear normal. There is no evidence for bowel obstruction. No abnormal abdominal calcifications are seen. IMPRESSION: Normal study. EXAMINATION: PELVIC ULTRASOUND CLINICAL HISTORY: Low abd/pelvic pain PAIN COMPARISON STUDY: None FINDINGS: The uterus measured 9 cm. The endometrial stripe measured 12 mm. The right ovary measured 3.7 cm with normal vascular flow. 2.9 cm right ovarian cyst. The left ovary measured surgically removed. There is no ultrasonographic evidence of ovarian torsion. It should be noted that ovarian torsion can be present with normal Doppler ultrasonographic findings. There was no evidence of pathologic free pelvic fluid. IMPRESSION: 1. Status post left ovarian removal. 2. 2.9 cm right ovarian cyst. 3. Otherwise negative study Laboratory Results 11/16/16 22:00 Red Blood Count 4.56, Mean Corpuscular Volume 83.6, Mean Corpuscular Hemoglobin 26.3, Mean Corpuscular Hemoglobin Concent 31.5, Mean Platelet Volume 8.8, Neutrophils (%) (Auto) 56.1, Lymphocytes (%) (Auto) 30.6, Monocytes (%) (Auto) 8.2, Eosinophils (%) (Auto) 4.3, Basophils (%) (Auto) 0.4, Neutrophils # (Auto) 4.30, Lymphocytes # (Auto) 2.35, Monocytes # (Auto) 0.63, Eosinophils # (Auto) 0.33, Basophils # (Auto) 0.03 11/16/16 22:00 Test 11/16/16 22:00 White Blood Count 7.67 K/uL (4.8-10.8) Red Blood Count 4.56 M/uL (4.2-5.4) Hemoglobin 12.0 g/dL (12.0-16.0) Hematocrit 38.1 % (37-47) Mean Corpuscular Volume 83.6 fL (80-100) Mean Corpuscular Hemoglobin 26.3 pg (25-34) Mean Corpuscular Hemoglobin Concent 31.5 g/dl (32-36) Platelet Count 500 K/uL (130-400) Mean Platelet Volume 8.8 fL (7.4-10.4) Neutrophils (%) (Auto) 56.1 % Lymphocytes (%) (Auto) 30.6 % Monocytes (%) (Auto) 8.2 % Eosinophils (%) (Auto) 4.3 % Basophils (%) (Auto) 0.4 % Neutrophils # (Auto) 4.30 K/uL (1.4-6.5) Lymphocytes # (Auto) 2.35 K/uL (1.2-3.4) Monocytes # (Auto) 0.63 K/uL (0.11-0.59) Eosinophils # (Auto) 0.33 K/uL (0-0.5) Basophils # (Auto) 0.03 K/uL (0-0.2) RDW Standard Deviation 45.0 fL (36.4-46.3) RDW Coefficient of Variation 14.7 % (11.5-14.5) Immature Granulocyte % (Auto) 0.4 % Immature Granulocyte # (Auto) 0.03 K/uL (0.00-0.02) Urine Color DK YELLOW Urine Appearance CLOUDY (CLEAR) Urine pH 5.0 (4.5-7.5) Urine Specific [place] 1.040 (1.000-1.030) Urine Protein NEG (NEG) Urine Glucose (UA) NEG (NEG) Urine Ketones NEG (NEG) Urine Occult Blood 1+ (NEG) Urine Nitrite NEG (NEG) Urine Bilirubin NEG (NEG) Urine Urobilinogen NEG (NEG) Urine Leukocyte Esterase NEG (NEG) Urine WBC (Auto) 1-5 /hpf (0-5) Urine RBC (Auto) 0-4 /hpf (0-4) Urine Hyaline Casts (Auto) 5-10 /lpf (0-5) Urine Epithelial Cells (Auto) >30 /lpf (0-5) Urine Bacteria (Auto) 1+ (NEG) Urine Test NEG (NEG) Anion Gap 8.0 mmol/L (3-11) Est Creatinine Clear Calc Drug Dose 84.5 ml/min Estimated GFR () 96.7 Estimated GFR (Non- 83.4 BUN/Creatinine Ratio 20.3 (10-20) Calcium Level 8.7 mg/dl (8.5-10.1) Total Bilirubin 0.1 mg/dl (0.2-1) Aspartate Amino Transf (AST/SGOT) 17 U/L (15-37) Alanine Aminotransferase (ALT/SGPT) 23 U/L (12-78) Alkaline Phosphatase 67 U/L (45-117) Total Protein 6.9 gm/dl (6.4-8.2) Albumin 3.5 gm/dl (3.4-5.0) Globulin 3.4 gm/dl (2.5-4.0) Albumin/Globulin Ratio 1.0 (0.9-2) Lipase 287 U/L (73-393) Chemistry Specimen Hemolysis Urine Opiates Screen POS (NEG) Urine Methadone, Qualitative NEG (NEG) Urine Barbiturates NEG (NEG) Urine Phencyclidine (PCP) Level NEG (NEG) Ur Amphetamine/Methamphetamine POS (NEG) MDMA (Ecstasy) Screen POS (NEG) Urine Benzodiazepines Screen NEG (NEG) Urine Cocaine Metabolite NEG (NEG) Urine Marijuana (THC) NEG (NEG) Medications Administered Medications (Trade) Dose Ordered Sig/Farooq Route Start Time Stop Time Status Last Admin Dose Admin Sodium Chloride (Nss 1000ml) 1,000 ml @ 999 mls/hr Q1H1M ONCE IV 11/16/16 22:00 11/16/16 23:00 DC 11/16/16 22:02 999 MLS/HR ED Course Physical exam and history were performed. Nursing notes and EMR were reviewed. Patient appears to have reports of low abdominal/pelvic pain. The patient is well-known to this facility and is on a no narcotic treatment plan. She is requesting pain medication, and I did offer her Tylenol, but she refused. Additionally the patient does defer a pelvic exam. IV access was established and labs were obtained. The patient was hydrated with normal saline. X-ray and ultrasound were performed. I considered but elected to defer CT imaging pending the patient's evaluation as she has had several CT scans over the years. The patient's blood work is as above and was reviewed. She does not have a significantly elevated white blood cell count, anemia, bandemia, or significant electrolyte imbalance. Lipase and transaminases are nondiagnostic. KUB does not show significant findings. Ultrasound does show a right ovarian cyst. Urine is without gross infection with culture pending. Drug of abuse screen was positive for opioids and amphetamines. It was also positive for ecstasy, however I suspect this is from her psychiatric medications. Overall the patient appears stable for discharge home. I do not appreciate an acute life-threatening etiology for her symptoms. She continued to be without significant abdominal tenderness on exam. The patient will be asked to follow with her [facility] and primary care physician for further management. She was not given narcotics at this visit despite asking several times. The chart was completed utilizing [employer] Speech Voice Recognition Software. Grammatical errors, random word insertions, pronoun errors, and incomplete sentences are an occasional consequence of this system due to software limitations, ambient noise, and hardware issues. Any formal questions or concerns about the content, text, or information contained within the body of this dictation should be directly addressed to the provider for clarification. . Medical Decision Differential diagnosis: Etiologies such as appendicitis, diverticulitis, PUD, biliary pathology, UTI, pancreatitis, obstruction, mesenteric ischemia, aortic pathology, infections, inflammatory bowel disease, renal colic, as well as others were entertained. Impression Primary Impression: Pelvic pain Departure Information Dispostion Home / Self-Care Condition GOOD Forms HOME CARE DOCUMENTATION FORM, IMPORTANT VISIT INFORMATION Patient Instructions My [facility] Additional Instructions You were seen and evaluated today on an emergency basis only. This is not a substitute for, or an effort to provide, complete comprehensive medical care. It is not possible to recognize and treat all injuries or illnesses in a single emergency department visit. For this reason it is recommended that you followup with [facility] for ongoing care and evaluation. Take Tylenol 1000 mg every 6-8 hours as needed. You are welcome to return to the emergency department anytime with new, worsening, or concerning symptoms.
[2017-01-12] MEDS ORDERED: BUPR200T2 PO ×2 (14:29→20:58)
[2017-01-12] MEDS ORDERED: PROM25TA16 PO (15:17)
[2017-01-12] MEDS ORDERED: KLN5X PO (15:36)
[2017-01-12] MEDS ORDERED: OXCA300T2 PO (16:01)
[2017-01-12] MEDS ORDERED: ACET-1256 PO (17:13)
== END 2016-11-17 00:30 | disposition home or self-care (01) ==
LOC: C.EDB 21:33
DX: R10.2 Pelvic and perineal pain (principal); I10 Essential (primary) hypertension; F31.9 Bipolar disorder, unspecified; K58.9 Irritable bowel syndrome, unspecified; J45.909 Unspecified asthma, uncomplicated; Z79.899 Other long term (current) drug therapy; Z87.19 Personal history of other diseases of the digestive system; Z87.42 Personal history of other diseases of the female genital tract; Z87.828 Personal history of other (healed) physical injury and trauma; F17.200 Nicotine dependence, unspecified, uncomplicated

== ENCOUNTER 2016-11-30 18:55 | Emergency (ER) | payer OTHER ==
[~2016-11-30] VITALS: Ht 157.5 cm; Wt 73.3 kg
[~2016-11-30 18:55] MED LIST changes: -AZITTAB PO; -BENZ100C84 PO; -VNTHFA/IN INH
[2016-11-30 19:13] VITALS: TEMP 36.7; Ht 157.5 cm; Wt 73.3 kg
[2016-11-30] MEDS ORDERED: ONDANSETRON INJ 2 MG/ML 2 ML VIAL IV STA (19:49)
[2016-11-30] MEDS ORDERED: SODIUM CHLORIDE 0.9% 1000ML 1,000 ML IV ONE (20:00)
[2016-11-30 20:59] LABS: BASO % 0.6 %; BASO ABS # 0.04 K/uL (0-0.2); COMPLETE YES; EOS % 0.9 %; HEMATOCRIT 39.5 % (37-47); IG% 0.3 %; LYMPH % 25.2 %; LYMPH ABS # 1.67 K/uL (1.2-3.4); MEAN CELL VOLUME 81.3 fL (80-100); MEAN CORPUSCULAR HEMOGLOBIN 27.2 pg (25-34); MEAN CORPUSCULAR HGB CONC 33.4 g/dl (32-36); MEAN PLATELET VOLUME 8.5 fL (7.4-10.4); MONO % 6.2 %; NEUT % 66.8 %; PLATELET COUNT 499 K/uL (130-400); RED BLOOD COUNT 4.86 M/uL (4.2-5.4); WHITE BLOOD COUNT 6.63 K/uL (4.8-10.8)
[2016-11-30 21:12] VITALS: BP 129/96
[2016-11-30 21:23] LABS: BLOOD UREA NITROGEN 19 mg/dl (7-18); BUN/CREATININE RATIO 17.5 (10-20); CARBON DIOXIDE 27 mmol/L (21-32); CHLORIDE 101 mmol/L (98-107); GLUCOSE 85 mg/dl (70-99); SODIUM 135 mmol/L (136-145)
[2016-11-30 22:01] LABS: CALCIUM 9.3 mg/dl (8.5-10.1)
[2016-11-30 22:18] LABS: ISTAT HEMOGLOBIN 13.6 g/dl (12.0-16.0); ISTAT IONIZED CALCIUM 1.11 mmol/l (1.12-1.32)
[2016-11-30 22:38] VITALS: PULSE 76; O2SAT 99
--- NOTE | 2016-12-01 01:40 | EMERGENCY ROOM VISIT NOTE ---
ED Visit Note First contact with patient: 19:22 Chief Complaint: Dental pain. History of Present Illness: Ms. Tejeda is a 36-year-old white female who ambulates into the ED accompanied by female friend complaining of dental pain and concerns for possible low serum potassium levels. Historically patient reports she has a history of hypokalemia. Patient reports 4 days ago she had dental surgery to prepare her mouth for dentures. She reports since that time she has been having moderate to severe dental pain. She does report that she was prescribed Vicodin for her pain but does not feel it is working. Currently she places her discomfort over both the maxillary and mandibular alveolar ridge. She describes this discomfort as a throbbing, achy and sharp sensation. She rates her discomfort 8/10. Her pain is nonradiating. Her pain worsens with eating and palpation. She has not identified any alleviating factors related to the pain. Associated with her pain she reports she has not been eating and has been intermittently nauseated; this causes her concerns for her hypokalemia. She denies fevers, chills, sweats, skin eruptions, skin color changes, difficulty swallowing, painful talking, drooling, throat pain, neck pain/ stiffness, shortness of breath, chest pain, vomiting, facial swelling. Review of Systems: As noted above in history of present illness. 8 body systems were reviewed and found to be negative as noted above. Past Medical History: As previously noted, pancreatitis, asthma, hypertension, bipolar disorder, year-old bowel syndrome, migraine headaches, gestational diabetes, PID, pyelonephritis, status post appendectomy, cholecystectomy, partial colectomy and removal of left ovary. Current Medications: Medications Dose Route/Sig Max Daily Dose Days Date Category Tylenol (Acetaminophen) 500 Mg Tab 1,000 Mg PO Q6 PRN 09/27/16 Reported Wellbutrin Sr (Bupropion HCl) 200 Mg Ertab 200 Mg PO DAILY@1400 12/13/15 Reported Wellbutrin Sr (Bupropion HCl) 200 Mg Ertab 200 Mg PO QAM 11/08/15 Reported Prilosec (Omeprazole) 40 Mg Capcr 40 Mg PO DAILY 07/02/15 Reported Promethazine HCl 25 Mg Tab 25 Mg PO Q4H PRN 02/06/15 Reported Clonazepam 0.5 Mg Tab 0.5 Mg PO TID 07/12/14 Reported Ventolin (Albuterol) Inh 2 Puffs INH Q4H PRN 04/21/14 Reported Trileptal (Oxcarbazepine) 300 Mg Tab 300 Mg PO BID 04/21/14 Reported Allergies to Medications: Penicillin, aspirin, ciprofloxacin, dicyclomine diphenhydramine, fentanyl, hydralazine, hives or mole fall and, ibuprofen, meperidine, metoclopramide, prednisone, tramadol, Toradol. Social History: Patient is not currently employed; she lives with her family and feels safe in her home environment; she admits to tobacco use. Physical Examination: Vital Signs: Date Time Temp Pulse Resp B/P Pulse Ox O2 Delivery O2 Flow Rate FiO2 11/30/16 22:38 76 18 99 11/30/16 21:12 86 19 129/96 97 11/30/16 19:13 36.7 114 20 138/97 99 Room Air GENERAL: 36-year-old female in mild to moderate distress due to symptoms, nontoxic-appearing, afebrile and hemodynamically stable. NEUROLOGICAL: Awake, alert and oriented to person, place and time. Answering questions appropriately and following commands. Normal gait. Good hand eye coordination. No focal motor sensory deficits. SKIN: Warm, dry and pink. No soft tissue eruptions or trauma noted. HEENT: Atraumatic and normocephalic. PERRLA. Sclera white and conjunctiva pink. No drainage from naris. Oral cavity moist and pink. Pharynx is nonerythematous or edematous. Speech normal. No signs of intraoral infections. No facial swelling. No lymphadenopathy. Trachea midline. No jugular venous distention. BACK: No tenderness over the bony spine. No CVA tenderness. THORAX: Lungs sounds are clear to auscultation and equal bilaterally with symmetrical chest wall. No wheezing, rales or rhonchi. No crepitus, tenderness , subcutaneous air or deformities noted. HEART: Regular rate and rhythm. No gallops, rubs or murmurs are appreciated. ABDOMEN: Flat, soft and nontender. Positive bowel sounds in all quadrants. No guarding, rigidity or organomegaly. EXTREMITIES: Moves all extremities well on command and with purpose. All distal neurovascular statuses are intact and equal bilaterally. ED Course: Patient is assessed as noted above. Laboratory Testing: Test 11/30/16 20:52 11/30/16 22:03 Range/Units White Blood Count 6.63 4.8-10.8 K/uL Red Blood Count 4.86 4.2-5.4 M/uL Hemoglobin 13.2 12.0-16.0 g/dL Hematocrit 39.5 37-47 % Mean Corpuscular Volume 81.3 80-100 fL Mean Corpuscular Hemoglobin 27.2 25-34 pg Mean Corpuscular Hemoglobin Concent 33.4 32-36 g/dl Platelet Count 499 130-400 K/uL Mean Platelet Volume 8.5 7.4-10.4 fL Neutrophils (%) (Auto) 66.8 % Lymphocytes (%) (Auto) 25.2 % Monocytes (%) (Auto) 6.2 % Eosinophils (%) (Auto) 0.9 % Basophils (%) (Auto) 0.6 % Neutrophils # (Auto) 4.43 1.4-6.5 K/uL Lymphocytes # (Auto) 1.67 1.2-3.4 K/uL Monocytes # (Auto) 0.41 0.11-0.59 K/uL Eosinophils # (Auto) 0.06 0-0.5 K/uL Basophils # (Auto) 0.04 0-0.2 K/uL RDW Standard Deviation 42.5 36.4-46.3 fL RDW Coefficient of Variation 14.6 11.5-14.5 % Immature Granulocyte % (Auto) 0.3 % Immature Granulocyte # (Auto) 0.02 0.00-0.02 K/uL Sodium Level 135 136-145 mmol/L Potassium Level 3.5-5.1 mmol/L Chloride Level 101 98-107 mmol/L Carbon Dioxide Level 27 21-32 mmol/L Anion Gap 7.0 20.0 16-25 mmol/L Blood Urea Nitrogen 19 7-18 mg/dl Creatinine 1.10 0.60-1.20 mg/dl Est Creatinine Clear Calc Drug Dose 67.6 ml/min Estimated GFR () 75.9 Estimated GFR (Non- 65.5 BUN/Creatinine Ratio 17.5 10-20 Random Glucose 85 70-99 mg/dl Calcium Level 9.3 8.5-10.1 mg/dl Bedside Hemoglobin 13.6 12.0-16.0 g/dl Bedside Hematocrit 40 37-47 % Bedside Sodium 138 135-144 mEq/L Bedside Potassium 3.9 3.3-5.0 mEq/L Bedside Chloride 102 101-112 mEq/L Bedside Total CO2 21 24-31 mEq/l Bedside Blood Urea Nitrogen 18 7-18 mg/dl Bedside Creatinine 1.0 0.6-1.3 mg/dl Bedside Glucose (other) 90 70-99 mg/dl Bedside Ionized Calcium (Frandy) 1.11 1.12-1.32 mmol/l An IV lock was initiated; patient was offered IV fluids and Zofran and refused. Patient was given oral fluids and she accepted and she was able to drink 3 bottles of Gatorade. Patient was educated about today's findings and instructed on her treatment plan ; she verbalizes understanding and agreement with this plan. Clinical Impression: Dental pain. Disposition: Patient discharged home in stable condition accompanied by female friends; prior to departure she was reassessed and subjectively reported she was feeling better and rated her discomfort 5/10. Plan: Patient was encouraged to continue her current medications as prescribed. Patient was encouraged a well hydrated with Gatorade and water. Patient was encouraged to keep her upcoming appointment with dentistry for definitive care and treatment. Patient was encouraged return the ED for worsening/uncontrolled symptoms, fevers , facial swelling or any new/concerning symptoms.
[2017-01-12] MEDS ORDERED: BUPR200T2 PO ×2 (14:29→20:58)
[2017-01-12] MEDS ORDERED: PROM25TA16 PO (15:17)
[2017-01-12] MEDS ORDERED: KLN5X PO (15:36)
[2017-01-12] MEDS ORDERED: OXCA300T2 PO (16:01)
[2017-01-12] MEDS ORDERED: ACET-1256 PO (17:13)
== END 2016-11-30 22:39 | disposition home or self-care (01) ==
LOC: C.EDB 18:55 → C.EDC 22:39
DX: K08.89 Other specified disorders of teeth and supporting structures (principal); I10 Essential (primary) hypertension; F31.9 Bipolar disorder, unspecified; K86.1 Other chronic pancreatitis; F17.200 Nicotine dependence, unspecified, uncomplicated; Z90.49 Acquired absence of other specified parts of digestive tract; Z98.890 Other specified postprocedural states; Z88.0 Allergy status to penicillin; Z88.2 Allergy status to sulfonamides; Z88.6 Allergy status to analgesic agent; Z88.8 Allergy status to other drugs, medicaments and biological substances

== ENCOUNTER 2016-12-17 19:43 | Emergency (ER) | payer OTHER ==
[~2016-12-17] VITALS: Ht 157.5 cm; Wt 75.0 kg
[2016-12-17 19:45] VITALS: Ht 157.5 cm; Wt 75.0 kg
--- NOTE | 2016-12-17 20:42 | DIAGNOSTIC IMAGING REPORT ---
LEFT ANKLE MIN 3 VIEWS ROUTINE CLINICAL HISTORY: L ankle papain pain COMPARISON: None. DISCUSSION: The bones and joint spaces appear intact. There is no evidence of fracture, dislocation or bony disease. There is no evidence for soft tissue swelling. IMPRESSION: Negative study. Electronically signed by: Perez Mirza M.D. 12/17/2016 8:41 PM Dictated Date/Time: 12/17/2016 8:40 PM
[2016-12-17 21:09] VITALS: BP 131/85; PULSE 75; TEMP 36.8; O2SAT 98
--- NOTE | 2016-12-17 21:26 | EMERGENCY ROOM VISIT NOTE ---
History First contact with patient: 19:49 Chief Complaint: FOOT PAIN Stated Complaint: SEVERE INJURY TO LEFT FOOT History of Present Illness The patient is a 36 year old female who presents to the Emergency Room with complaints of severe left ankle pain. The patient reports that she was walking on the sidewalk and tripped, twisting her ankle. She reports a prior history of left ankle fracture. She follows with Dr. Kruger at [facility]. She currently denies any pain extending into the leg. She denies any paresthesias or numbness of the left foot or toes, and rates her discomfort a 9 out of 10. She denies any other injuries from this fall. Review of Systems 10 system review was performed and was negative except for pertinent positives and negatives as indicated in history of present illness Past Medical/Surgical History Medical Problems: (1) Acute pancreatitis (2) Ankle sprain (3) Asthma (4) BENIGN HYPERTENSION (5) Bipolar disorder (6) Essential hypertension (7) External otitis of right ear (8) Gastric polyp (9) History of adenomatous polyp of colon (10) Hypokalemia (11) IBS (irritable bowel syndrome) (12) Injury of right ankle (13) Intermittent palpitations (14) Knee contusion (15) Left ankle injury (16) Left knee injury (17) Pain following oral surgery (18) PERSONAL HISTORY OF GESTATIONAL DIABETES (19) PID (pelvic inflammatory disease) (20) Pyelonephritis, acute (21) Wrist injury Surgical Problems: (1) Hx of appendectomy (2) s/p cholecystectomy (3) s/p EGD (4) s/p partial colectomy (5) S/P removal of left ovary Family History FHx: cancer Social History Smoking Status: Current Every Day Smoker Alcohol Use: none Drug Use: none Marital Status: Housing Status: lives with family Occupation Status: disabled Current/Historical Medications Scheduled Bupropion (Wellbutrin Sr), 200 MG PO QAM Bupropion (Wellbutrin Sr), 200 MG PO QD@1400 Clonazepam (Clonazepam), 0.5 MG PO TID Omeprazole (Prilosec), 40 MG PO DAILY Oxcarbazepine (Trileptal), 300 MG PO BID Scheduled PRN Acetaminophen (Tylenol), 1,000 MG PO Q6H PRN for Pain Albuterol Hfa (Ventolin Hfa), 2 PUFFS INH Q4H PRN for Wheezing Promethazine HCl (Promethazine HCl), 25 MG PO Q4H PRN for Nausea or Vomiting Allergies Coded Allergies: Amoxicillin (Verified Allergy, Intermediate, hives, 09/27/16) Aspirin (Verified Allergy, Intermediate, PT. GETS HIVES, 09/27/16) Dicyclomine (Unverified Allergy, Intermediate, RASH, 09/27/16) Hydromorphone (Verified Allergy, Intermediate, FELT THROAT DISCOMFORT, SWITCHED TO MSO4 & FINE, 09/27/16) PER PHYSICIAN (DR. TRIVEDI) ON 06/03/10 @ 0910. AJ Ketorolac Tromethamine (Verified Allergy, Intermediate, ulcers in stomach , 09/27/16) Ibuprofen (Verified Allergy, Mild, 09/27/16) Tramadol (Verified Allergy, Mild, headaches, 09/27/16) Adhesives (Verified Allergy, Unknown, ERYTHEMA WITH "ADHESIVE TAPE", ) Ciprofloxacin (Verified Allergy, Unknown, hives, 09/27/16) Clavulanic Acid (Verified Allergy, Unknown, RASH + HIVES, Augmentin, ) Fentanyl (Verified Allergy, Unknown, THROAT TIGHTENS, 09/27/16) Hydralazine (Verified Allergy, Unknown, -, 09/27/16) Meperidine (Verified Allergy, Unknown, UNKN, 09/27/16) Metoclopramide (Verified Allergy, Unknown, SHAKING/TREMORS, 09/27/16) PT IS ALLERGIC PER DR. FOSTER Penicillins (Verified Allergy, Unknown, RASH,HIVES ALSO AUGMENTIN, 09/27) PT. STATES SHE GETS A RASH/HIVES FROM PCN Quinolones (Verified Allergy, Unknown, RASH, 09/27/16) Diphenhydramine (Verified Adverse Reaction, Intermediate, anxiety, 09/27/16 ) Prednisone (Verified Adverse Reaction, Unknown, worsening anxiety, 09/27/16 ) pt Physical Exam Vital Signs Date Time Temp Pulse Resp B/P (MAP) Pulse Ox O2 Delivery O2 Flow Rate FiO2 12/17/16 21:09 36.8 75 18 131/85 98 12/17/16 19:45 36.8 99 20 135/86 95 Room Air Pain Rating (0-10): 8.0 Physical Exam CONSTITUTIONAL: Healthy and well nourished. Alert and oriented X 3 with positive affect. HEENT: Normocephalic, atraumatic. Pupils equal, round and reactive. NECK: Full active range of motion without discomfort. MUSCULOSKELETAL: Examination of the left ankle does not show any ecchymosis or soft tissue edema. She has generalized tenderness to palpation over the lateral aspect of the ankle. No focal tenderness over the deltoid ligament. Negative anterior draw. She has no additional tenderness over the dorsal midfoot, metatarsals, phalanges, calcaneus, Achilles tendon or proximal fibula. Pedal pulses are intact. INTEGUMENTARY: No rash or other significant dermatologic conditions noted. NEUROLOGIC: Left foot and toes are sensory intact. Medical Decision & Procedures ER Provider Diagnostic Interpretation: My interpretation of left ankle x-rays does not show any acute fractures, dislocation or ankle mortise asymmetry. Radiologist report is as follows: LEFT ANKLE MIN 3 VIEWS ROUTINE CLINICAL HISTORY: L ankle papain pain COMPARISON: None. DISCUSSION: The bones and joint spaces appear intact. There is no evidence of fracture, dislocation or bony disease. There is no evidence for soft tissue swelling. IMPRESSION: Negative study. ED Course Patient history and physical exam were performed. Nurse's notes were reviewed. Vital signs were reviewed and were normal. The patient had gone to x-ray prior to my exam. X-rays of the left ankle were normal. She was advised of her normal x-ray findings. When asked if the patient still has her crutches at home, she reports that she moved and threw away all of her medical equipment. She was dispensed crutches, and instructed not to mutilate or destroy this crutches. She was instructed to ice and elevate the ankle for swelling and pain. Tylenol as needed for additional pain relief. Follow-up with Dr. Kruger as needed if symptoms are not improving within the next week. The patient voiced understanding of all discharge instructions, and rated her discomfort a 4 out of 10 at the conclusion of my exam. Medical Decision Impression Primary Impression: Left ankle sprain Departure Information Dispostion Home / Self-Care Forms HOME CARE DOCUMENTATION FORM, IMPORTANT VISIT INFORMATION Patient Instructions My [facility] [employer] Additional Instructions Intermittently apply ice and elevate ankle for swelling and pain. Use your crutches for the next 3 days, minimal weight on foot. Perform ankle range of motion exercises to prevent stiffness. After 3 days, apply an ankle brace and, continuing to use crutches, slowly apply weight as tolerated - NO LIMPING. Tylenol as needed for pain. Follow-up with orthopedics if symptoms are not improving within the next 7 days. Problem Qualifiers Primary Impression: Left ankle sprain Encounter type: initial encounter Involved ligament of ankle: unspecified ligament Qualified Codes: S93.402A - Sprain of unspecified ligament of left ankle, initial encounter
[2017-01-12] MEDS ORDERED: BUPR200T2 PO ×2 (14:29→20:58)
[2017-01-12] MEDS ORDERED: PROM25TA16 PO (15:17)
[2017-01-12] MEDS ORDERED: KLN5X PO (15:36)
[2017-01-12] MEDS ORDERED: OXCA300T2 PO (16:01)
[2017-01-12] MEDS ORDERED: ACET-1256 PO (17:13)
== END 2016-12-17 21:05 | disposition home or self-care (01) ==
LOC: C.EDB 19:44 → C.EDD 21:05
DX: S93.402A Sprain of unspecified ligament of left ankle, initial encounter (principal); I10 Essential (primary) hypertension; F31.9 Bipolar disorder, unspecified; K58.9 Irritable bowel syndrome, unspecified; J45.909 Unspecified asthma, uncomplicated; Z79.899 Other long term (current) drug therapy; Z87.19 Personal history of other diseases of the digestive system; Z87.828 Personal history of other (healed) physical injury and trauma; W01.0XXA Fall on same level from slipping, tripping and stumbling without subsequent striking against object, initial encounter; F17.200 Nicotine dependence, unspecified, uncomplicated

== ENCOUNTER 2017-01-12 19:56 | Emergency (ER) | payer OTHER ==
[~2017-01-12] VITALS: Ht 156.2 cm; Wt 76.5 kg
[~2017-01-12 19:56] MED LIST changes: +ACET-1256 PO; -ALBUAER2 INH; +BUPR200T2 PO; +KLN5X PO; -OMEP40CA PO; +OXCA300T2 PO; +PROM25TA16 PO
[2017-01-12] MEDS ORDERED: VNTHFA/IN INH (20:02)
[2017-01-12] MEDS ORDERED: OMEP40CA41 PO (20:02)
[2017-01-12 20:03] VITALS: TEMP 36.8; Ht 156.2 cm; Wt 76.5 kg
--- NOTE | 2017-01-12 20:41 | DIAGNOSTIC IMAGING REPORT ---
RIGHT WRIST 5 VIEWS CLINICAL HISTORY: Fall with right wrist pain. FINDINGS: 5 views of the right wrist are obtained. No prior studies are available for comparison at the time of dictation. The skeletal structures are well mineralized. No fracture is seen. The joint spaces of the wrist are well-maintained. There is benign-appearing cortical thickening involving the fifth metacarpal, possibly representing an exostosis. The overlying soft tissues are within normal limits. IMPRESSION: 1. There is no radiographic evidence of right wrist fracture. 2. There is benign appearing cortical thickening seen involving the shaft of the fifth metacarpal, possibly representing an exostosis. Electronically signed by: Tez Sutton M.D. 01/12/2017 8:40 PM Dictated Date/Time: 01/12/2017 8:29 PM
[2017-01-12] MEDS ORDERED: CLON0.5T3 PO (20:50)
[2017-01-12] MEDS ORDERED: BUPR200T2 PO (20:58)
--- NOTE | 2017-01-12 21:18 | EMERGENCY ROOM VISIT NOTE ---
ED Visit Note First contact with patient: 20:37 CHIEF COMPLAINT: Wrist injury HPI: This patient is a 36-year-old female that presents to emergency department complaining of right wrist pain, forearm pain and elbow pain since she fell on an outstretched hand when he she tripped earlier today. She denies any other injuries. She denies any numbness or tingling in the wrist. She tried Tylenol for the pain with minimal relief. She denies any history of breaks in this arm. REVIEW OF SYSTEMS: GENERAL: No fever or chills, easy fatigue, loss of appetite, or significant weight change. NEUROLOGICAL: No headache, change in mental status, weakness, numbness, or dizziness. PMH: Depression, narcotic seeking behavior SOCIAL HISTORY: Patient lives at home + cigarettes, denies alcohol or drug use PHYSICAL EXAM: Vital Signs: Reviewed Nurse's notes. MENTAL STATUS: Alert and oriented. WRIST: Diffuse tenderness to palpation over the distal radius and ulna. + Snuff box tenderness. Mildly reduced flexion and extension. Radial pulse intact. Capillary refill of the fingers less than 2 seconds. Diffuse tenderness up the forearm. full range of motion of the elbow. No deformity. SKIN: Normal and intact. The hand is warm and well perfused and the fingers move normally. EMERGENCY DEPARTMENT COURSE: The patient was seen and examined. Imaging was performed. She was offered Tylenol, but declined. Patient Name: LUIS LEBRON Unit Number: [id number] Dictated: 01/12/172133 Transcribed: 01/12/172133 EV Printed Date/Time: [~ rep prt dt]/[~ rep prt tm] [~ rep ct labl] - [~ rep ct ivnm] [facility] [place] [address] Dictated: 01/12/172133 Transcribed: 01/12/172133 EV Printed Date/Time: [~ rep prt dt]/[~ rep prt tm] [~ rep ct labl] - [~ rep ct ivnm] Patient: LUIS LEBRON Address1: [address] [facility] Rec: [id number] Address2: Acct ID: [id number] [facility] Zip: [place] [address] Date: 1980 Sex: F Room/Bed: Ref Phy: Rozick, Perez S.,M.D. SC: [facility] Att Phy: Report #: [id number] Lae Phy: Perez Richter M.D. Test: ELB2 Admit Phy: Sales Clerk Food: LARRY Interpreting Phy: Tez Sutton M.D. Diagnosis: FALL, R ARM PAIN Ordering Phy: Mickie Rankin PA-C Service Date: 01/12/17 Admit Date: 01/12/17 MNE: [id number] CONF: DICTATED BY: Tez Sutton M.D.]] CC: Pancho Fisher MD Rozick, Mark S., M.D. Urban, Angela P., PA-C Endcc: [~ rep ct add3]] RIGHT ELBOW 2 VIEWS CLINICAL HISTORY: Fall with right elbow pain. FINDINGS: AP and lateral views of the right elbow are obtained. No prior studies are available for comparison at the time of dictation. The skeletal structures are well mineralized. No fracture is seen. The joint spaces are preserved. There is no joint effusion. The overlying soft tissues are within normal limits. IMPRESSION: Unremarkable radiographic assessment of the right elbow. Electronically signed by: Tez Sutton M.D. 01/12/2017 9:35 PM Dictated Date/Time: 01/12/2017 9:34 PM The status of this report is Signed. Draft = Not yet reviewed or approved by Radiologist. Signed = Reviewed and approved by Radiologist. <AttendingPhy></AttendingPhy> <FamilyPhy>Perez Richter M.D.</FamilyPhy> < PrimaryPhy>Perez Richter M.D.</PrimaryPhy> <UnitNumber>[id number]</UnitNumber > <VisitNumber>[id number]</VisitNumber> <PatientName>LUIS LEBRON</ PatientName> <DateOfBirth>1980</DateOfBirth> <Location>[facility]</Location> < ServiceDate>01/12/17</ServiceDate> <MNE>ESINDI</MNE> <OrderingPhy>Urban, Mickie P PA-C</OrderingPhy> <OrderingPhyMNE>f rep ord dr chávez</OrderingPhyMNE> < DictatingPhyMNE>f rep dict dr chávez</DictatingPhyMNE> <CCListMNE>f rep ct mne</ CCListMNE> <AdmittingPhyMNE>f pt admit dr chávez</AdmittingPhyMNE> <AttendingPhyMNE >f pt attend dr chávez</AttendingPhyMNE> <ConsultingPhyMNE>f pt consult dr chávez</ConsultingPhyMNE> <FamilyPhyMNE>f pt fam dr chávez</FamilyPhyMNE> <OtherPhyMNE>f pt other dr chávez</OtherPhyMNE> < PrimaryPhyMNE>f pt prim care dr chávez</PrimaryPhyMNE> <ReferringPhyMNE>f pt referring dr chávez</ReferringPhyMNE> Patient: LUIS LEBRON Address1: [address] [facility] Rec: [id number] Address2: Acct ID: [id number] [facility] Zip: [place] [address] Date: 1980 Sex: F Room/Bed: Ref Phy: Perez Richter M.D. SC: [facility] Att Phy: Report #: [id number] Lea Phy: Perez Richter M.D. Test: WTWNAV Admit Phy: Sales Clerk Food: OLI Interpreting Phy: Tez Sutton M.D. Diagnosis: FALL, R ARM PAIN Ordering Phy: ED, PROTOCOL Service Date: 01/12/17 Admit Date: 01/12/17 MNE: [id number] CONF: DICTATED BY: Tez Sutton M.D.]] CC: ED,PROTOCOL Pancho Fisher MD Rozick, Mark S., M.D. Endcc: [~ rep ct add3]] RIGHT WRIST 5 VIEWS CLINICAL HISTORY: Fall with right wrist pain. FINDINGS: 5 views of the right wrist are obtained. No prior studies are available for comparison at the time of dictation. The skeletal structures are well mineralized. No fracture is seen. The joint spaces of the wrist are well-maintained. There is benign-appearing cortical thickening involving the fifth metacarpal, possibly representing an exostosis. The overlying soft tissues are within normal limits. IMPRESSION: 1. There is no radiographic evidence of right wrist fracture. 2. There is benign appearing cortical thickening seen involving the shaft of the fifth metacarpal, possibly representing an exostosis. Electronically signed by: Tez Sutton M.D. 01/12/2017 8:40 PM Dictated Date/Time: 01/12/2017 8:29 PM The status of this report is Signed. Draft = Not yet reviewed or approved by Radiologist. Signed = Reviewed and approved by Radiologist. These findings were discussed with the patient. She was given a wrist lacer and also an arm sling. Discharge instructions were reviewed, and she was discharged in good condition DIAGNOSIS: Sprained right wrist and elbow pain DISCHARGE INSTRUCTIONS & TREATMENT: Please refer to the discharge instructions were provided to the patient
--- NOTE | 2017-01-12 21:37 | DIAGNOSTIC IMAGING REPORT ---
RIGHT ELBOW 2 VIEWS CLINICAL HISTORY: Fall with right elbow pain. FINDINGS: AP and lateral views of the right elbow are obtained. No prior studies are available for comparison at the time of dictation. The skeletal structures are well mineralized. No fracture is seen. The joint spaces are preserved. There is no joint effusion. The overlying soft tissues are within normal limits. IMPRESSION: Unremarkable radiographic assessment of the right elbow. Electronically signed by: Tez Sutton M.D. 01/12/2017 9:35 PM Dictated Date/Time: 01/12/2017 9:34 PM
[2017-01-12 22:20] VITALS: BP 129/85; PULSE 76; O2SAT 99
== END 2017-01-12 22:20 | disposition home or self-care (01) ==
LOC: C.EDB 19:57 → C.EDD 22:20
DX: S63.501A Unspecified sprain of right wrist, initial encounter (principal); M25.521 Pain in right elbow; W01.0XXA Fall on same level from slipping, tripping and stumbling without subsequent striking against object, initial encounter; F17.200 Nicotine dependence, unspecified, uncomplicated

== ENCOUNTER 2017-02-05 09:47 | Emergency (ER) | payer OTHER ==
[~2017-02-05] VITALS: Ht 154.9 cm; Wt 75.8 kg
[~2017-02-05 09:47] MED LIST changes: +CLON0.5T3 PO; +OMEP40CA41 PO; +VNTHFA/IN INH
[2017-02-05 09:49] VITALS: TEMP 36.6; Ht 154.9 cm; Wt 75.8 kg
--- NOTE | 2017-02-05 10:06 | EMERGENCY ROOM VISIT NOTE ---
History Report prepared by Aylin: Alfonso Kevin Under the Supervision of: Dr. Hilario Farley M.D. First contact with patient: 09:56 Chief Complaint: PELVIC PAIN Stated Complaint: PELVIC PAIN/DISCHARGE WITH ODOR History of Present Illness The patient is a 36 year old female who presents to the Emergency Room with complaints of constant pelvic pain for the past few days. The patient states that she has been having yellow/green discharge for the past two days. She denies any vaginal bleeding. The patient states that she is currently on antibiotics for swollen lymph nodes, and she states that she has a history of yeast infections, and an oophorectomy. Source of History: patient Onset: few days ago Position: pelvis Timing: constant Note: Associated symptoms: Vaginal discharge Review of Systems See HPI for pertinent positives & negatives. A total of 10 systems reviewed and were otherwise negative. Past Medical & Surgical Medical Problems: (1) Acute pancreatitis (2) Ankle sprain (3) Asthma (4) BENIGN HYPERTENSION (5) Bipolar disorder (6) Essential hypertension (7) External otitis of right ear (8) Gastric polyp (9) History of adenomatous polyp of colon (10) Hypokalemia (11) IBS (irritable bowel syndrome) (12) Injury of right ankle (13) Intermittent palpitations (14) Knee contusion (15) Left ankle injury (16) Left knee injury (17) Pain following oral surgery (18) PERSONAL HISTORY OF GESTATIONAL DIABETES (19) PID (pelvic inflammatory disease) (20) Pyelonephritis, acute (21) Wrist injury Surgical Problems: (1) Hx of appendectomy (2) s/p cholecystectomy (3) s/p EGD (4) s/p partial colectomy (5) S/P removal of left ovary Family History FHx: cancer Social History Smoking Status: Current Every Day Smoker Alcohol Use: none Drug Use: none Marital Status: Housing Status: lives with family Occupation Status: disabled Current/Historical Medications Scheduled Bupropion (Wellbutrin Sr), 200 MG PO QAM Bupropion (Wellbutrin Sr), 200 MG PO QD@1400 Cefuroxime Axetil (Cefuroxime Axetil), 500 MG PO BID Clonazepam (Clonazepam), 0.5 MG PO BID Clonazepam (Klonopin), 1.5 TABS PO HS Metronidazole (Flagyl), 1 TAB PO BID Omeprazole (Prilosec), 40 MG PO DAILY Oxcarbazepine (Trileptal), 300 MG PO BID Scheduled PRN Acetaminophen (Tylenol), 1,000 MG PO Q6H PRN for Pain Albuterol Hfa (Ventolin Hfa), 2 PUFFS INH Q4H PRN for Wheezing Promethazine HCl (Promethazine HCl), 25 MG PO Q4H PRN for Nausea or Vomiting Allergies Coded Allergies: Amoxicillin (Verified Allergy, Intermediate, hives, 09/27/16) Aspirin (Verified Allergy, Intermediate, PT. GETS HIVES, 09/27/16) Dicyclomine (Unverified Allergy, Intermediate, RASH, 09/27/16) Hydromorphone (Verified Allergy, Intermediate, FELT THROAT DISCOMFORT, SWITCHED TO MSO4 & FINE, 09/27/16) PER PHYSICIAN (DR. TRIVEDI) ON 06/03/10 @ 0910. AJ Ketorolac Tromethamine (Verified Allergy, Intermediate, ulcers in stomach , 09/27/16) Ibuprofen (Verified Allergy, Mild, 09/27/16) Tramadol (Verified Allergy, Mild, headaches, 09/27/16) Adhesives (Verified Allergy, Unknown, ERYTHEMA WITH "ADHESIVE TAPE", ) Ciprofloxacin (Verified Allergy, Unknown, hives, 09/27/16) Clavulanic Acid (Verified Allergy, Unknown, RASH + HIVES, Augmentin, ) Fentanyl (Verified Allergy, Unknown, THROAT TIGHTENS, 09/27/16) Hydralazine (Verified Allergy, Unknown, -, 09/27/16) Meperidine (Verified Allergy, Unknown, UNKN, 09/27/16) Metoclopramide (Verified Allergy, Unknown, SHAKING/TREMORS, 09/27/16) PT IS ALLERGIC PER DR. FOSTER Penicillins (Verified Allergy, Unknown, RASH,HIVES ALSO AUGMENTIN, 09/27) PT. STATES SHE GETS A RASH/HIVES FROM PCN Quinolones (Verified Allergy, Unknown, RASH, 09/27/16) Diphenhydramine (Verified Adverse Reaction, Intermediate, anxiety, 09/27/16 ) Prednisone (Verified Adverse Reaction, Unknown, worsening anxiety, 09/27/16 ) pt Physical Exam Vital Signs Date Time Temp Pulse Resp B/P (MAP) Pulse Ox O2 Delivery O2 Flow Rate FiO2 02/05/17 13:57 69 18 126/81 99 02/05/17 13:02 61 18 130/88 100 Room Air 02/05/17 11:14 69 18 140/74 99 Room Air 02/05/17 09:49 36.6 77 18 162/97 99 Room Air Physical Exam GENERAL: Patient is chronically unwell appearing, unkempt, and in minimal distress. HEENT: No acute trauma, normocephalic atraumatic, mucous membranes moist, no nasal congestion, no scleral icterus. NECK: No stridor, no adenopathy, no meningismus, trachea is midline. LUNGS: No dyspnea. Clear to auscultation and equal bilaterally. No wheeze, no rhonchi. HEART: Regular rate and rhythm. No murmurs, rubs, gallops appreciated. ABDOMEN: Vague tenderness of the left lower abdomen. Soft, bowel sounds positive , no masses appreciated, no peritonitis. BACK: No midline tenderness, no CVA tenderness VAGINAL: Mildly erythematous vaginal canal. Scant white discharge. Vague right pelvic pain. Normal otherwise. EXTREMITIES: Normal motion all extremities, no cyanosis, no edema. NEUROLOGIC: Alert and oriented, no acute motor or sensory deficits, no focal weakness, cranial nerves grossly intact. SKIN: No rash, no jaundice, no diaphoresis. Medical Decision & Procedures ER Provider Diagnostic Interpretation: Radiology results and stated below per my review and radiologist interpretation: TRANSVAG-FEMALE PELVIS CLINICAL HISTORY: 36 years-old Female presenting with Right pelvic pain, discharge. only has rt ovary. TECHNIQUE: Real-time grayscale and color and spectral Doppler ultrasound imaging of the pelvis was performed first using a transabdominal probe and subsequently transvaginal for better characterization. COMPARISON: 11/16/2016. FINDINGS: Uterus: 1.5 x 1.4 x 1.1 cm hypoechoic region along the right uterine body with internal vascularity, consistent with uterine fibroid. Anteverted. The uterus measures 8.0 x 4.1 x 4.3 cm. Endometrial stripe measures 11 mm in thickness. Endometrium normal-appearing. Cervix demonstrates in both in cysts. Right adnexa: Right ovary contains a 3.2 x 1.9 x 2.6 cm anechoic simple cyst, which is almost certainly benign and requires no follow-up. Right ovary measures 4.2 x 2.5 x 3.7 cm. Normal color Doppler flow and arterial and venous waveforms within the ovarian parenchyma. Left adnexa: Patient is status post left oophorectomy. Other: No free fluid. IMPRESSION: 1. Postsurgical changes of left oophorectomy. 2. Uterine fibroid. 3. No ovarian torsion. Electronically signed by: Triston Vilchis M.D. 02/05/2017 12:55 PM Dictated Date/Time: 02/05/2017 12:51 PM Laboratory Results Test 02/05/17 10:20 Laboratory results as reviewed by me. Medications Administered Medications (Trade) Dose Ordered Sig/Farooq Route Start Time Stop Time Status Last Admin Dose Admin Metronidazole (Flagyl Tab) 500 mg NOW STAT PO 02/05/17 13:44 02/05/17 13:46 DC 02/05/17 13:54 500 MG Fluconazole (Diflucan Tab) 150 mg NOW ONCE PO 02/05/17 13:45 02/05/17 13:46 DC 02/05/17 13:54 150 MG ED Course 0956: The patient was evaluated in room A2. A complete history and physical exam was performed. 1344: Flagyl Tab 500mg PO 1345: Diflucan Tab 150mg PO 1353: Reevaluated the patient. Discussed results and discharge instructions: She verbalized understanding and agreement. The patient is ready for discharge. Medical Decision Differential: Appendicitis, Ovarian Torsion, PID, Tubo-ovarian Abscess, Intrauterine , Ectopic , Endometriosis, amongst other pathologies entertained. 36 yr old female very well known to department for frequent visits of varying complaints, though often times pelvic in nature. History of left ovarian removal. Varying vague exam initially stating left sided, then right, then middle, essentially changes on each evaluation. Mild erythema/white discharge vaginal vault. On an abx thus will treat with diflucan x 1 followed by flagyl. Furthermore US done of pelvis at patient request which was unremarkable. Stable over several hours without peritonitis. Stressed importance of follow up with PCP and Cv Tech. Medication Reconcilliation Current Medication List: was personally reviewed by me Blood Pressure Screening Patient's blood pressure: Normal blood pressure Blood pressure disposition: Elevated BP felt to be situational Impression Primary Impression: Pelvic pain Additional Impression: Vaginal discharge Scribe Attestation The scribe's documentation has been prepared under my direction and personally reviewed by me in its entirety. I confirm that the note above accurately reflects all work, treatment, procedures, and medical decision making performed by me. Departure Information Dispostion Home / Self-Care Prescriptions Metronidazole (FLAGYL) 500 Mg Tab 1 TAB PO BID for 7 Days, #14 TAB Prov: Hilario Farley M.D. 02/05/17 Referrals Perez Richter M.D. (PCP) Forms HOME CARE DOCUMENTATION FORM, IMPORTANT VISIT INFORMATION Patient Instructions My [facility] Additional Instructions Please follow up with your primary care provider or Crew Team Member in next few days. Return if fevers, vomiting, worsening pain or other concerns. Do not drink alcohol with Flagyl (Metronidazole). Problem Qualifiers
[2017-02-05] MEDS ORDERED: CEFU1TAB36 PO (10:14)
--- NOTE | 2017-02-05 12:56 | DIAGNOSTIC IMAGING REPORT ---
TRANSVAG-FEMALE PELVIS CLINICAL HISTORY: 36 years-old Female presenting with Right pelvic pain, discharge. only has rt ovary. TECHNIQUE: Real-time grayscale and color and spectral Doppler ultrasound imaging of the pelvis was performed first using a transabdominal probe and subsequently transvaginal for better characterization. COMPARISON: 11/16/2016. FINDINGS: Uterus: 1.5 x 1.4 x 1.1 cm hypoechoic region along the right uterine body with internal vascularity, consistent with uterine fibroid. Anteverted. The uterus measures 8.0 x 4.1 x 4.3 cm. Endometrial stripe measures 11 mm in thickness. Endometrium normal-appearing. Cervix demonstrates in both in cysts. Right adnexa: Right ovary contains a 3.2 x 1.9 x 2.6 cm anechoic simple cyst, which is almost certainly benign and requires no follow-up. Right ovary measures 4.2 x 2.5 x 3.7 cm. Normal color Doppler flow and arterial and venous waveforms within the ovarian parenchyma. Left adnexa: Patient is status post left oophorectomy. Other: No free fluid. IMPRESSION: 1. Postsurgical changes of left oophorectomy. 2. Uterine fibroid. 3. No ovarian torsion. Electronically signed by: Triston Vilchis M.D. 02/05/2017 12:55 PM Dictated Date/Time: 02/05/2017 12:51 PM
[2017-02-05] MEDS ORDERED: METRONIDAZOLE 250 MG TAB PO STA (13:44)
[2017-02-05] MEDS ORDERED: FLUCONAZOLE 50 MG TAB PO ONE (13:45)
[2017-02-05] MEDS ORDERED: METR-162 PO (13:46)
[2017-02-05 13:57] VITALS: BP 126/81; PULSE 69; O2SAT 99
[2017-02-07 14:08] LABS: CHLAMYDIA TRACH RNA*** NOT DETECTED (NOT DETECTED); GC (NEIS GONORRHOEAE)RNA** NOT DETECTED (NOT DETECTED)
== END 2017-02-05 13:55 | disposition home or self-care (01) ==
LOC: C.EDB 09:48 → C.EDA 13:55
DX: R10.2 Pelvic and perineal pain (principal); N89.8 Other specified noninflammatory disorders of vagina; J45.909 Unspecified asthma, uncomplicated; I10 Essential (primary) hypertension; K31.7 Polyp of stomach and duodenum; E87.6 Hypokalemia; K58.9 Irritable bowel syndrome, unspecified; N73.9 Female pelvic inflammatory disease, unspecified; F17.200 Nicotine dependence, unspecified, uncomplicated; Z90.721 Acquired absence of ovaries, unilateral; Z90.49 Acquired absence of other specified parts of digestive tract

== ENCOUNTER 2017-02-10 14:34 | Emergency (ER) | payer OTHER ==
[~2017-02-10] VITALS: Ht 154.9 cm; Wt 77.6 kg
[~2017-02-10 14:34] MED LIST changes: +CEFU1TAB36 PO; +METR-162 PO
[2017-02-10 14:39] VITALS: Ht 154.9 cm; Wt 77.6 kg
[2017-02-10 15:13] LABS: URINE APPEARANCE CLEAR (CLEAR); URINE BILIRUBIN NEG (NEG); URINE COLOR YELLOW; URINE EPITHELIAL CELL AUTO >30 /lpf (0-5); URINE NITRITE NEG (NEG); URINE SPECIFIC GRAVITY 1.024 (1.000-1.030); UROBILINOGEN NEG (NEG); ZZURINE CULT IF INDIC CATH NO
[2017-02-10 15:21] LABS: MANUAL MICROSCOPIC REQUIRED? NO; REVIEW REQ? NO
[2017-02-10 15:25] VITALS: BP 157/89; PULSE 110; TEMP 36.9; O2SAT 99
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
[2017-02-10 15:46] LABS: BENZODIAZEPINE, URINE NEG (NEG); COCAINE,URINE NEG (NEG); PHENCYCLIDINE, URINE NEG (NEG)
== END 2017-02-10 15:37 | disposition home or self-care (01) ==
LOC: C.EDB 14:36 → C.EDA 15:37
DX: F41.9 Anxiety disorder, unspecified (principal); J45.909 Unspecified asthma, uncomplicated; I10 Essential (primary) hypertension; N73.9 Female pelvic inflammatory disease, unspecified; F17.200 Nicotine dependence, unspecified, uncomplicated; Z87.828 Personal history of other (healed) physical injury and trauma; Z86.32 Personal history of gestational diabetes; Z90.49 Acquired absence of other specified parts of digestive tract; Z90.89 Acquired absence of other organs; Z98.890 Other specified postprocedural states; Z79.899 Other long term (current) drug therapy

== ENCOUNTER 2017-06-04 04:48 | Emergency (ER) | payer OTHER ==
[~2017-06-04] VITALS: Ht 154.9 cm; Wt 83.8 kg
[~2017-06-04 04:48] MED LIST changes: -METR-162 PO
[2017-06-04 04:55] VITALS: TEMP 37.4; Ht 154.9 cm; Wt 83.8 kg
[2017-06-04] MEDS ORDERED: SODIUM CHLORIDE 0.9% 1000ML 1,000 ML IV STA (05:22)
[2017-06-04] MEDS ORDERED: MoRPHine SULFATE 4 MG/ML 1 ML CARP\\VIAL IV STA (05:22)
[2017-06-04] MEDS ORDERED: ONDANSETRON INJ 2 MG/ML 2 ML VIAL IV STA (05:22)
[2017-06-04 05:50] LABS: BASO % 0.2 %; BASO ABS # 0.01 K/uL (0-0.2); COMPLETE YES; EOS % 0.5 %; HEMATOCRIT 38.4 % (37-47); IG% 0.3 %; LYMPH % 7.3 %; LYMPH ABS # 0.44 K/uL (1.2-3.4); MEAN CELL VOLUME 83.5 fL (80-100); MEAN CORPUSCULAR HEMOGLOBIN 26.3 pg (25-34); MEAN CORPUSCULAR HGB CONC 31.5 g/dl (32-36); MEAN PLATELET VOLUME 9.1 fL (7.4-10.4); NEUT % 87.7 %; PLATELET COUNT 492 K/uL (130-400); WHITE BLOOD COUNT 6.05 K/uL (4.8-10.8)
[2017-06-04 06:03] LABS: MANUAL MICROSCOPIC REQUIRED? NO; REVIEW REQ? NO; URINE APPEARANCE CLEAR (CLEAR); URINE BILIRUBIN NEG (NEG); URINE COLOR YELLOW; URINE EPITHELIAL CELL AUTO >30 /lpf (0-5); URINE NITRITE NEG (NEG); URINE PH 6.5 (4.5-7.5); URINE SPECIFIC GRAVITY 1.022 (1.000-1.030); UROBILINOGEN NEG (NEG); ZZUR CULT IF INDIC CLEAN CATCH YES
[2017-06-04 06:08] LABS: ALB/GLOB RATIO 0.9 (0.9-2); BUN/CREATININE RATIO 13.9 (10-20); CALCIUM 8.4 mg/dl (8.5-10.1); CREATININE 1.05 mg/dl (0.60-1.20); POTASSIUM 4.3 mmol/L (3.5-5.1)
--- NOTE | 2017-06-04 07:49 | EMERGENCY ROOM VISIT NOTE ---
History Report prepared by Aylin: Charu Banerjee Under the Supervision of: Dr. Shila Baker D.O. First contact with patient: 05:03 Chief Complaint: ABDOMINAL PAIN Stated Complaint: ABDOMINAL PAIN, VOMITING, HEADACHE X 2 DAYS Nursing Triage Summary: patient presents with c/o abdominal pain to upper quadrants that has worsened over the past two days along with nausea. patient states this week she had an abdominal ultrasound and was diagnosed with two separate hernias and patient was to have a referral to surgery. History of Present Illness The patient is a 36 year old female who presents to the Emergency Room with complaints of intermittent abdominal pain staring 2 days ago. The pain is mostly in her upper abdomen, but she does have some lower abdominal pain. The pain worsens when she stands or uses her muscles. She has been vomiting every time she eats or drinks. She had a fever of 101.2 yesterday. She has had some diarrhea. She denies any hematemesis or bloody stools. She denies any sick contacts. She denies any recent medication or diet changes. She has a history of colectomy, cholecystectomy, and C section. She recently had an ultrasound which showed 2 hernias. Source of History: patient Onset: 2 days ago Position: abdomen (upper) Quality: other (pain) Timing: intermittent Modifying Factors (Worsening): other (using muscles) Associated Symptoms: + fevers, + nausea, + vomiting, + diarrhea, No hematochezia Note: Pt denies hematemesis. Review of Systems See HPI for pertinent positives & negatives. A total of 10 systems reviewed and were otherwise negative. Past Medical & Surgical Medical Problems: (1) Acute pancreatitis (2) Ankle sprain (3) Asthma (4) BENIGN HYPERTENSION (5) Bipolar disorder (6) Essential hypertension (7) External otitis of right ear (8) Gastric polyp (9) History of adenomatous polyp of colon (10) Hypokalemia (11) IBS (irritable bowel syndrome) (12) Injury of right ankle (13) Intermittent palpitations (14) Knee contusion (15) Left ankle injury (16) Left knee injury (17) Pain following oral surgery (18) PERSONAL HISTORY OF GESTATIONAL DIABETES (19) PID (pelvic inflammatory disease) (20) Pyelonephritis, acute (21) Wrist injury Surgical Problems: (1) Hx of appendectomy (2) s/p cholecystectomy (3) s/p EGD (4) s/p partial colectomy (5) S/P removal of left ovary Family History FHx: cancer Social History Smoking Status: Current Every Day Smoker Alcohol Use: none Drug Use: none Marital Status: Housing Status: lives with family Occupation Status: disabled Current/Historical Medications Scheduled Bupropion (Wellbutrin Sr), 200 MG PO QAM Bupropion (Wellbutrin Sr), 200 MG PO QD@1400 Clonazepam (Clonazepam), 0.5 MG PO BID Clonazepam (Klonopin), 1.5 TABS PO HS Omeprazole (Prilosec), 40 MG PO DAILY Ondasetron Odt (Zofran Odt), 4 MG SL Q8 Oxcarbazepine (Trileptal), 300 MG PO BID Scheduled PRN Acetaminophen (Tylenol), 1,000 MG PO Q6H PRN for Pain Albuterol Hfa (Ventolin Hfa), 2 PUFFS INH Q4H PRN for Wheezing Promethazine HCl (Promethazine HCl), 25 MG PO Q4H PRN for Nausea or Vomiting Allergies Coded Allergies: Amoxicillin (Verified Allergy, Intermediate, hives, 06/04/17) Aspirin (Verified Allergy, Intermediate, PT. GETS HIVES, 06/04/17) Dicyclomine (Unverified Allergy, Intermediate, RASH, 06/04/17) Hydromorphone (Verified Allergy, Intermediate, FELT THROAT DISCOMFORT, SWITCHED TO MSO4 & FINE, 06/04/17) PER PHYSICIAN (DR. TRIVEDI) ON 06/03/10 @ 0910. AJ Ketorolac Tromethamine (Verified Allergy, Intermediate, ulcers in stomach , 06/04/17) Ibuprofen (Verified Allergy, Mild, 06/04/17) Tramadol (Verified Allergy, Mild, headaches, 06/04/17) Adhesives (Verified Allergy, Unknown, ERYTHEMA WITH "ADHESIVE TAPE", 06/04) Ciprofloxacin (Verified Allergy, Unknown, hives, 06/04/17) Clavulanic Acid (Verified Allergy, Unknown, RASH + HIVES, Augmentin, 06/04) Fentanyl (Verified Allergy, Unknown, THROAT TIGHTENS, 06/04/17) Hydralazine (Verified Allergy, Unknown, -, 06/04/17) Meperidine (Verified Allergy, Unknown, UNKN, 06/04/17) Metoclopramide (Verified Allergy, Unknown, SHAKING/TREMORS, 06/04/17) PT IS ALLERGIC PER DR. FOSTER Penicillins (Verified Allergy, Unknown, RASH,HIVES ALSO AUGMENTIN, ) PT. STATES SHE GETS A RASH/HIVES FROM PCN Quinolones (Verified Allergy, Unknown, RASH, 06/04/17) Diphenhydramine (Verified Adverse Reaction, Intermediate, anxiety, ) Prednisone (Verified Adverse Reaction, Unknown, worsening anxiety, ) pt Physical Exam Vital Signs Date Time Temp Pulse Resp B/P (MAP) Pulse Ox O2 Delivery O2 Flow Rate FiO2 06/04/17 09:59 94 16 126/84 97 06/04/17 08:38 92 20 122/75 95 Room Air 06/04/17 07:15 93 18 114/89 98 Room Air 06/04/17 05:46 92 20 135/86 96 Room Air 06/04/17 04:55 37.4 102 20 139/92 96 Room Air Physical Exam GENERAL: alert, well appearing, well nourished, no distress, non-toxic EYE EXAM: normal conjunctiva, PERRL and EOM's grossly intact OROPHARYNX: edentulous. no exudate, no erythema, lips, buccal mucosa, and tongue normal and mucous membranes are moist NECK: supple, no nuchal rigidity, no adenopathy, non-tender LUNGS: Clear to auscultation. Normal chest wall mechanics HEART: no murmurs, S1 normal and S2 normal ABDOMEN: abdomen soft, tenderness to palpation in the upper abdomen, normo- active bowel sounds, no pulsatile mass, no rebound or guarding, no palpable hernias around her umbilicus. BACK: Back is symmetrical on inspection and there is no deformity, no midline tenderness, no CVA tenderness. SKIN: no rashes and no bruising UPPER EXTREMITIES: upper extremities are grossly normal. LOWER EXTREMITIES: No pitting edema. NEURO EXAM: Normal sensorium, cranial nerves II-XII grossly intact, normal speech, no gross weakness of arms, no gross weakness of legs. Medical Decision & Procedures Laboratory Results 06/04/17 04:45 Red Blood Count 4.60, Mean Corpuscular Volume 83.5, Mean Corpuscular Hemoglobin 26.3, Mean Corpuscular Hemoglobin Concent 31.5, Mean Platelet Volume 9.1, Neutrophils (%) (Auto) 87.7, Lymphocytes (%) (Auto) 7.3, Monocytes (%) (Auto) 4.0, Eosinophils (%) (Auto) 0.5, Basophils (%) (Auto) 0.2, Neutrophils # (Auto) 5.31, Lymphocytes # (Auto) 0.44, Monocytes # (Auto) 0.24, Eosinophils # (Auto) 0.03, Basophils # (Auto) 0.01 06/04/17 04:45 Test 06/04/17 04:45 06/04/17 05:00 06/04/17 05:35 White Blood Count 6.05 K/uL (4.8-10.8) Red Blood Count 4.60 M/uL (4.2-5.4) Hemoglobin 12.1 g/dL (12.0-16.0) Hematocrit 38.4 % (37-47) Mean Corpuscular Volume 83.5 fL (80-100) Mean Corpuscular Hemoglobin 26.3 pg (25-34) Mean Corpuscular Hemoglobin Concent 31.5 g/dl (32-36) Platelet Count 492 K/uL (130-400) Mean Platelet Volume 9.1 fL (7.4-10.4) Neutrophils (%) (Auto) 87.7 % Lymphocytes (%) (Auto) 7.3 % Monocytes (%) (Auto) 4.0 % Eosinophils (%) (Auto) 0.5 % Basophils (%) (Auto) 0.2 % Neutrophils # (Auto) 5.31 K/uL (1.4-6.5) Lymphocytes # (Auto) 0.44 K/uL (1.2-3.4) Monocytes # (Auto) 0.24 K/uL (0.11-0.59) Eosinophils # (Auto) 0.03 K/uL (0-0.5) Basophils # (Auto) 0.01 K/uL (0-0.2) RDW Standard Deviation 44.0 fL (36.4-46.3) RDW Coefficient of Variation 14.5 % (11.5-14.5) Immature Granulocyte % (Auto) 0.3 % Immature Granulocyte # (Auto) 0.02 K/uL (0.00-0.02) Anion Gap 8.0 mmol/L (3-11) Est Creatinine Clear Calc Drug Dose 74.1 ml/min Estimated GFR () 80.2 Estimated GFR (Non- 69.2 BUN/Creatinine Ratio 13.9 (10-20) Calcium Level 8.4 mg/dl (8.5-10.1) Total Bilirubin 0.2 mg/dl (0.2-1) Aspartate Amino Transf (AST/SGOT) 39 U/L (15-37) Alanine Aminotransferase (ALT/SGPT) 58 U/L (12-78) Alkaline Phosphatase 70 U/L (45-117) Total Protein 7.9 gm/dl (6.4-8.2) Albumin 3.7 gm/dl (3.4-5.0) Globulin 4.2 gm/dl (2.5-4.0) Albumin/Globulin Ratio 0.9 (0.9-2) Lipase 188 U/L (73-393) Chemistry Specimen Hemolysis Urine Color YELLOW Urine Appearance CLEAR (CLEAR) Urine pH 6.5 (4.5-7.5) Urine Specific [place] 1.022 (1.000-1.030) Urine Protein NEG (NEG) Urine Glucose (UA) NEG (NEG) Urine Ketones NEG (NEG) Urine Occult Blood 1+ (NEG) Urine Nitrite NEG (NEG) Urine Bilirubin NEG (NEG) Urine Urobilinogen NEG (NEG) Urine Leukocyte Esterase NEG (NEG) Urine WBC (Auto) 1-5 /hpf (0-5) Urine RBC (Auto) 5-10 /hpf (0-4) Urine Hyaline Casts (Auto) 0 /lpf (0-5) Urine Epithelial Cells (Auto) >30 /lpf (0-5) Urine Bacteria (Auto) 1+ (NEG) Lactic Acid Level 1.4 mmol/L (0.4-2.0) Date/Time Source Procedure Growth Status 06/04/17 05:00 Urine , Clean Catch Urine Culture - Final MORE THAN THREE TYPES OF ORGANISMS NH... Complete Laboratory results per my review. Medications Administered Medications (Trade) Dose Ordered Sig/Farooq Route Start Time Stop Time Status Last Admin Dose Admin Sodium Chloride 1,000 ml @ 999 mls/hr Q1H1M STAT IV 06/04/17 05:22 06/04/17 06:22 DC 11/24/17 05:44 999 MLS/HR Ondansetron HCl (Zofran Inj) 4 mg NOW STAT IV 06/04/17 05:22 06/04/17 05:27 DC 06/04/17 05:43 4 MG Morphine Sulfate (MoRPHine SULFATE INJ) 4 mg NOW STAT IV 06/04/17 05:22 06/04/17 05:27 DC 06/04/17 05:43 4 MG Prochlorperazine Edisylate (Compazine Inj) 10 mg NOW STAT IV 06/04/17 08:28 06/04/17 08:30 DC 06/04/17 08:34 10 MG ECG Indication: abdominal pain Rate (beats per minute): 99 Rhythm: sinus rhythm Findings: no acute ischemic change, other (normal axis, normal intervals, low voltage) ED Course 0504: The patient was evaluated in room A12B. A complete history and physical exam was performed. 0522: Morphine Sulfate 4 mg IV, Zofran Inj 4 mg IV, NSS 1000 ml @ 999 mls/hr IV. Medical Decision Differential diagnoses includes but is not limited to gastritis, peptic ulcer disease, GERD, gallbladder disease, pancreatitis, small bowel obstruction, acute coronary syndrome, pericarditis, ischemic bowel, irritable bowel disease, irritable bowel syndrome, appendicitis, diverticulitis, malignancy, hernia, urinary tract infection, torsion, /ectopic , perforation, trauma, infectious. Patient with multiple prior complaints and limited to the emergency room. Patient's labs reassuring here after several days of supposed symptoms. Awaiting CT results at time of sign out. I suspect CT will be unremarkable and patient will be able to go home. Patient's vital signs otherwise stable. Patient continued asked for pain medication and was exhibiting drug-seeking behavior. No additional narcotics were given. Discharge instructions were written. I signed the patient out to Dr. Garcia to follow-up the CT results. Medication Reconcilliation Current Medication List: was personally reviewed by me Blood Pressure Screening Patient's blood pressure: Elevated blood pressure Blood pressure disposition: Elevated BP felt to be situational Impression Primary Impression: Abdominal pain Scribe Attestation The scribe's documentation has been prepared under my direction and personally reviewed by me in its entirety. I confirm that the note above accurately reflects all work, treatment, procedures, and medical decision making performed by me. Departure Information Dispostion Home / Self-Care Prescriptions Ondasetron Odt (ZOFRAN ODT) 4 Mg Tab 4 MG SL Q8 for Nausea, #20 TAB Prov: Shila Baker, 06/04/17 Referrals Perez Richter M.D. (PCP) Patient Instructions My [facility] Additional Instructions Please call and follow up with your family doctor. If you develop any worsening symptoms or new concerns, please return the emergency room.
[2017-06-04] MEDS ORDERED: ONDA4TAB10 SL (07:51)
[2017-06-04] MEDS ORDERED: OPTIRAY 320 IV PRN (08:00)
[2017-06-04] MEDS ORDERED: PROCHLORPERAZINE 5 MG/ML 2 ML VIAL IV STA (08:28)
--- NOTE | 2017-06-04 08:49 | DIAGNOSTIC IMAGING REPORT ---
CT OF THE ABDOMEN AND PELVIS WITH CONTRAST CLINICAL HISTORY: Abdominal pain, nausea and vomiting. Ventral hernias. COMPARISON STUDY: CT of the abdomen and pelvis August 24, 2015, abdominal ultrasound July 27, 2016 and pelvic ultrasound February 05, 2017. TECHNIQUE: Following IV administration of 94 mL of [id number]-320, axial images of the abdomen and pelvis were obtained from the lung bases to the proximal femurs. Images were reviewed in the axial, sagittal, and coronal planes. IV contrast was administered without complication. A dose lowering technique was utilized adhering to the principles of ALARA. Oral contrast was administered. CT DOSE: 553.71 mGy.cm FINDINGS: Biliary ductal dilatation is unchanged since CT of April 04, 2014 and likely related to prior cholecystectomy. Prominence of the main pancreatic duct is unchanged. There is no peripancreatic infiltration. There is suspected fatty infiltration of the liver. The spleen, adrenal glands and right kidney are normal. A few hypodense left renal lesions are too small to characterize but likely reflect cysts. There are postoperative findings consistent with a subtotal colectomy. There is no evidence for a bowel obstruction. Note is made of a fat-containing umbilical hernia and a few small fat-containing ventral hernias. No pneumatosis, free air or portal venous gas is present. There are no pathologically enlarged lymph nodes. There are no suspicious osseous lesions. IMPRESSION: 1. No acute process within the abdomen or pelvis. 2. Stable biliary ductal dilatation likely related to prior cholecystectomy. 3. Status post subtotal colectomy. No bowel obstruction. 4. Small fat-containing umbilical hernia and a few small fat-containing ventral hernias. Electronically signed by: Kody Rodney M.D. 06/04/2017 8:48 AM Dictated Date/Time: 06/04/2017 8:31 AM
[2017-06-04 09:59] VITALS: BP 126/84; PULSE 94; O2SAT 97
--- NOTE | 2017-06-04 10:07 | EMERGENCY ROOM VISIT NOTE ---
ED Visit Note Received patient in signout. History and physical verified by me. Patient is awaiting CAT scan. CAT scan is unchanged from previous. During a period of high volume and high acuity the patient was discharged however I was unable to follow-up with the patient before she left. Problem List Medical Problems: (1) Acute pancreatitis Status: Resolved (2) Ankle sprain Status: Resolved (3) Asthma Status: Chronic (4) BENIGN HYPERTENSION Status: Chronic (5) Bipolar disorder Status: Chronic (6) Essential hypertension Status: Chronic (7) External otitis of right ear Status: Resolved (8) Gastric polyp Status: Chronic (9) History of adenomatous polyp of colon Status: Chronic (10) Hypokalemia Status: Resolved (11) IBS (irritable bowel syndrome) Status: Chronic (12) Injury of right ankle Status: Resolved (13) Intermittent palpitations Status: Resolved (14) Knee contusion Status: Resolved (15) Left ankle injury Status: Resolved (16) Left knee injury Status: Resolved (17) Pain following oral surgery Status: Resolved (18) PERSONAL HISTORY OF GESTATIONAL DIABETES Status: Chronic (19) PID (pelvic inflammatory disease) Status: Resolved (20) Pyelonephritis, acute Status: Resolved (21) Wrist injury Status: Resolved Surgical Problems: (1) Hx of appendectomy Status: Chronic (2) s/p cholecystectomy Status: Chronic (3) s/p EGD Status: Chronic (4) s/p partial colectomy Permanent Comment: for polyps Status: Chronic (5) S/P removal of left ovary Status: Chronic Current/Historical Medications Scheduled Bupropion (Wellbutrin Sr), 200 MG PO QAM Bupropion (Wellbutrin Sr), 200 MG PO QD@1400 Clonazepam (Clonazepam), 0.5 MG PO BID Clonazepam (Klonopin), 1.5 TABS PO HS Omeprazole (Prilosec), 40 MG PO DAILY Ondasetron Odt (Zofran Odt), 4 MG SL Q8 Oxcarbazepine (Trileptal), 300 MG PO BID Scheduled PRN Acetaminophen (Tylenol), 1,000 MG PO Q6H PRN for Pain Albuterol Hfa (Ventolin Hfa), 2 PUFFS INH Q4H PRN for Wheezing Promethazine HCl (Promethazine HCl), 25 MG PO Q4H PRN for Nausea or Vomiting Allergies Coded Allergies: Amoxicillin (Verified Allergy, Intermediate, hives, 06/04/17) Aspirin (Verified Allergy, Intermediate, PT. GETS HIVES, 06/04/17) Dicyclomine (Unverified Allergy, Intermediate, RASH, 06/04/17) Hydromorphone (Verified Allergy, Intermediate, FELT THROAT DISCOMFORT, SWITCHED TO MSO4 & FINE, 06/04/17) PER PHYSICIAN (DR. TRIVEDI) ON 06/03/10 @ 0910. AJ Ketorolac Tromethamine (Verified Allergy, Intermediate, ulcers in stomach , 06/04/17) Ibuprofen (Verified Allergy, Mild, 06/04/17) Tramadol (Verified Allergy, Mild, headaches, 06/04/17) Adhesives (Verified Allergy, Unknown, ERYTHEMA WITH "ADHESIVE TAPE", 06/04) Ciprofloxacin (Verified Allergy, Unknown, hives, 06/04/17) Clavulanic Acid (Verified Allergy, Unknown, RASH + HIVES, Augmentin, 06/04) Fentanyl (Verified Allergy, Unknown, THROAT TIGHTENS, 06/04/17) Hydralazine (Verified Allergy, Unknown, -, 06/04/17) Meperidine (Verified Allergy, Unknown, UNKN, 06/04/17) Metoclopramide (Verified Allergy, Unknown, SHAKING/TREMORS, 06/04/17) PT IS ALLERGIC PER DR. FOSTER Penicillins (Verified Allergy, Unknown, RASH,HIVES ALSO AUGMENTIN, ) PT. STATES SHE GETS A RASH/HIVES FROM PCN Quinolones (Verified Allergy, Unknown, RASH, 06/04/17) Diphenhydramine (Verified Adverse Reaction, Intermediate, anxiety, ) Prednisone (Verified Adverse Reaction, Unknown, worsening anxiety, ) pt Vital Signs Date Time Temp Pulse Resp B/P (MAP) Pulse Ox O2 Delivery O2 Flow Rate FiO2 06/04/17 09:59 94 16 126/84 97 06/04/17 08:38 92 20 122/75 95 Room Air 06/04/17 07:15 93 18 114/89 98 Room Air 06/04/17 05:46 92 20 135/86 96 Room Air 06/04/17 04:55 37.4 102 20 139/92 96 Room Air Laboratory Results 06/04/17 04:45 Red Blood Count 4.60, Mean Corpuscular Volume 83.5, Mean Corpuscular Hemoglobin 26.3, Mean Corpuscular Hemoglobin Concent 31.5, Mean Platelet Volume 9.1, Neutrophils (%) (Auto) 87.7, Lymphocytes (%) (Auto) 7.3, Monocytes (%) (Auto) 4.0, Eosinophils (%) (Auto) 0.5, Basophils (%) (Auto) 0.2, Neutrophils # (Auto) 5.31, Lymphocytes # (Auto) 0.44, Monocytes # (Auto) 0.24, Eosinophils # (Auto) 0.03, Basophils # (Auto) 0.01 06/04/17 04:45 Test 06/04/17 04:45 06/04/17 05:00 06/04/17 05:35 White Blood Count 6.05 K/uL (4.8-10.8) Red Blood Count 4.60 M/uL (4.2-5.4) Hemoglobin 12.1 g/dL (12.0-16.0) Hematocrit 38.4 % (37-47) Mean Corpuscular Volume 83.5 fL (80-100) Mean Corpuscular Hemoglobin 26.3 pg (25-34) Mean Corpuscular Hemoglobin Concent 31.5 g/dl (32-36) Platelet Count 492 K/uL (130-400) Mean Platelet Volume 9.1 fL (7.4-10.4) Neutrophils (%) (Auto) 87.7 % Lymphocytes (%) (Auto) 7.3 % Monocytes (%) (Auto) 4.0 % Eosinophils (%) (Auto) 0.5 % Basophils (%) (Auto) 0.2 % Neutrophils # (Auto) 5.31 K/uL (1.4-6.5) Lymphocytes # (Auto) 0.44 K/uL (1.2-3.4) Monocytes # (Auto) 0.24 K/uL (0.11-0.59) Eosinophils # (Auto) 0.03 K/uL (0-0.5) Basophils # (Auto) 0.01 K/uL (0-0.2) RDW Standard Deviation 44.0 fL (36.4-46.3) RDW Coefficient of Variation 14.5 % (11.5-14.5) Immature Granulocyte % (Auto) 0.3 % Immature Granulocyte # (Auto) 0.02 K/uL (0.00-0.02) Anion Gap 8.0 mmol/L (3-11) Est Creatinine Clear Calc Drug Dose 74.1 ml/min Estimated GFR () 80.2 Estimated GFR (Non- 69.2 BUN/Creatinine Ratio 13.9 (10-20) Calcium Level 8.4 mg/dl (8.5-10.1) Total Bilirubin 0.2 mg/dl (0.2-1) Aspartate Amino Transf (AST/SGOT) 39 U/L (15-37) Alanine Aminotransferase (ALT/SGPT) 58 U/L (12-78) Alkaline Phosphatase 70 U/L (45-117) Total Protein 7.9 gm/dl (6.4-8.2) Albumin 3.7 gm/dl (3.4-5.0) Globulin 4.2 gm/dl (2.5-4.0) Albumin/Globulin Ratio 0.9 (0.9-2) Lipase 188 U/L (73-393) Chemistry Specimen Hemolysis Urine Color YELLOW Urine Appearance CLEAR (CLEAR) Urine pH 6.5 (4.5-7.5) Urine Specific [place] 1.022 (1.000-1.030) Urine Protein NEG (NEG) Urine Glucose (UA) NEG (NEG) Urine Ketones NEG (NEG) Urine Occult Blood 1+ (NEG) Urine Nitrite NEG (NEG) Urine Bilirubin NEG (NEG) Urine Urobilinogen NEG (NEG) Urine Leukocyte Esterase NEG (NEG) Urine WBC (Auto) 1-5 /hpf (0-5) Urine RBC (Auto) 5-10 /hpf (0-4) Urine Hyaline Casts (Auto) 0 /lpf (0-5) Urine Epithelial Cells (Auto) >30 /lpf (0-5) Urine Bacteria (Auto) 1+ (NEG) Lactic Acid Level 1.4 mmol/L (0.4-2.0) Medications Administered Medications (Trade) Dose Ordered Sig/Farooq Route Start Time Stop Time Status Last Admin Dose Admin Sodium Chloride 1,000 ml @ 999 mls/hr Q1H1M STAT IV 06/04/17 05:22 06/04/17 06:22 DC 06/04/17 05:44 999 MLS/HR Ondansetron HCl (Zofran Inj) 4 mg NOW STAT IV 06/04/17 05:22 06/04/17 05:27 DC 06/04/17 05:43 4 MG Morphine Sulfate (MoRPHine SULFATE INJ) 4 mg NOW STAT IV 06/04/17 05:22 06/04/17 05:27 DC 06/04/17 05:43 4 MG Prochlorperazine Edisylate (Compazine Inj) 10 mg NOW STAT IV 06/04/17 08:28 06/04/17 08:30 DC 06/04/17 08:34 10 MG Departure Information Impression Primary Impression: Abdominal pain Dispostion Home / Self-Care Condition GOOD Prescriptions Ondasetron Odt (ZOFRAN ODT) 4 Mg Tab 4 MG SL Q8 for Nausea, #20 TAB Prov: Shila Baker, 06/04/17 Referrals Perez Richter M.D. (PCP) 2-3 days Forms Call Back Authorization, HOME CARE DOCUMENTATION FORM, IMPORTANT VISIT INFORMATION Patient Instructions Abdominal Pain - [facility], [facility] Additional Instructions Please call and follow up with your family doctor. If you develop any worsening symptoms or new concerns, please return the emergency room.
== END 2017-06-04 10:02 | disposition home or self-care (01) ==
LOC: EDBD 04:48 → C.EDA 04:49
DX: R10.10 Upper abdominal pain, unspecified (principal); R10.30 Lower abdominal pain, unspecified; K85.90 Acute pancreatitis without necrosis or infection, unspecified; J45.909 Unspecified asthma, uncomplicated; F31.9 Bipolar disorder, unspecified; I10 Essential (primary) hypertension; K58.9 Irritable bowel syndrome, unspecified; F17.210 Nicotine dependence, cigarettes, uncomplicated; Z79.899 Other long term (current) drug therapy

== ENCOUNTER 2017-10-07 10:46 | Emergency (ER) | payer OTHER ==
[~2017-10-07] VITALS: Ht 154.9 cm; Wt 86.4 kg
[~2017-10-07 10:46] MED LIST changes: -CEFU1TAB36 PO; +ONDA4TAB10 SL
[2017-10-07 10:50] VITALS: TEMP 36.9; Ht 154.9 cm; Wt 86.4 kg
[2017-10-07] MEDS ORDERED: HYDR5SYP11 PO (11:12)
[2017-10-07] MEDS ORDERED: MoRPHine SULFATE 4 MG/ML 1 ML CARP\\VIAL IV STA (11:34)
[2017-10-07] MEDS ORDERED: PROMETHAZINE HCL INJ 12.5 MG in SODIUM CHLORIDE 0.9% 50ML 50 ML IV STA (11:34)
--- NOTE | 2017-10-07 11:42 | EMERGENCY ROOM VISIT NOTE ---
History First contact with patient: 11:16 Chief Complaint: RECTAL BLEEDING Stated Complaint: RECTAL BLEEDING AND PAIN IN LOWER GUT, NAUSEA Nursing Triage Summary: Patient ambulatory to triage. "I have alot of rectal bleeding. I do have hemorrhoids and usually my bleeding is red but now the blood is dark. I am now having abdominal pain." Nausea. BMs are normal other than the blood, moving more than usual but not diarrhea History of Present Illness The patient is a 37 year old female who presents to the Emergency Room with complaints of rectal bleeding, abdominal pain, nausea that started this morning. The patient describes the abdominal pain is a severe cramping sensation. Patient reports a history of FAP. She had an endoscope and a colonoscopy on September [address] Cat. She denies any new medications. The patient does have hemorrhoids, but says that she does not have any rectal itching, burning or discomfort that is typically associated with her hemorrhoids. She denies any fever or chills. No antibiotic use. Review of Systems 10 system review performed and negative unless noted in HPI or below Past Medical/Surgical History Medical Problems: (1) Acute pancreatitis (2) Ankle sprain (3) Asthma (4) BENIGN HYPERTENSION (5) Bipolar disorder (6) Essential hypertension (7) External otitis of right ear (8) Gastric polyp (9) History of adenomatous polyp of colon (10) Hypokalemia (11) IBS (irritable bowel syndrome) (12) Injury of right ankle (13) Intermittent palpitations (14) Knee contusion (15) Left ankle injury (16) Left knee injury (17) Pain following oral surgery (18) PERSONAL HISTORY OF GESTATIONAL DIABETES (19) PID (pelvic inflammatory disease) (20) Pyelonephritis, acute (21) Wrist injury Surgical Problems: (1) Hx of appendectomy (2) s/p cholecystectomy (3) s/p EGD (4) s/p partial colectomy (5) S/P removal of left ovary Family History FHx: cancer Social History Smoking Status: Current Every Day Smoker Alcohol Use: none Drug Use: none Marital Status: Housing Status: lives with family Occupation Status: disabled Current/Historical Medications Scheduled Bupropion (Wellbutrin Sr), 200 MG PO QAM Bupropion (Wellbutrin Sr), 200 MG PO QD@1400 Clonazepam (Clonazepam), 0.5 MG PO QAM Clonazepam (Klonopin), 1.5 TABS PO HS Omeprazole (Prilosec), 40 MG PO BID Oxcarbazepine (Trileptal), 300 MG PO BID Scheduled PRN Acetaminophen (Tylenol), 1,000 MG PO Q6H PRN for Pain Albuterol Hfa (Ventolin Hfa), 2 PUFFS INH Q4H PRN for Wheezing Hydrocodone W/ Homatropine (Hycodan 5/1.5MG 5 Ml), 5 ML PO QID PRN for Cough Promethazine HCl (Promethazine HCl), 25 MG PO Q4H PRN for Nausea or Vomiting Physical Exam Vital Signs Date Time Temp Pulse Resp B/P (MAP) Pulse Ox O2 Delivery O2 Flow Rate FiO2 10/07/17 13:54 85 18 147/92 98 10/07/17 13:45 85 18 147/92 98 Room Air 10/07/17 12:46 90 18 146/97 97 Room Air 10/07/17 10:50 36.9 99 20 162/111 99 Room Air Physical Exam VITALS: Vitals are noted on the nurse's note and reviewed by myself. Vital signs stable. GENERAL: 37-year-old female, moderately anxious in appearance,, in no acute distress, nondiaphoretic, well-developed well-nourished. SKIN: The skin was without rashes, erythema, edema, or bruising. HEAD: Normocephalic atraumatic. MOUTH: Mucous membranes dry NECK: Supple without nuchal rigidity. No JVD. HEART: Regular rate and rhythm without murmurs gallops or rubs. LUNGS: Clear to auscultation bilaterally without wheezes, rales or rhonchi. No accessory muscle use. ABDOMEN: Bowel sounds present, but hypoactive. Diffuse, mild tenderness without any guarding or rebound tenderness. RECTAL: Small external hemorrhoid noted. It is not thrombosed. Small bowel of blood noted around the anus MUSCULOSKELETAL: No muscle atrophy, erythema, or edema noted. Strength 5/5 throughout. NEURO: Patient was alert and oriented to person place and time. Normal sensation to touch. No focal neurological deficits. Medical Decision & Procedures Laboratory Results 10/07/17 11:40 Red Blood Count 4.44, Mean Corpuscular Volume 80.4, Mean Corpuscular Hemoglobin 27.0, Mean Corpuscular Hemoglobin Concent 33.6, Mean Platelet Volume 8.4, Neutrophils (%) (Auto) 63.9, Lymphocytes (%) (Auto) 26.6, Monocytes (%) (Auto) 6.6, Eosinophils (%) (Auto) 1.9, Basophils (%) (Auto) 0.5, Neutrophils # (Auto) 4.14, Lymphocytes # (Auto) 1.72, Monocytes # (Auto) 0.43, Eosinophils # (Auto) 0.12, Basophils # (Auto) 0.03 10/07/17 11:40 Test 10/07/17 00:00 10/07/17 11:40 10/07/17 11:55 Stool Occult Blood POSITIVE (NEGATIVE) White Blood Count 6.47 K/uL (4.8-10.8) Red Blood Count 4.44 M/uL (4.2-5.4) Hemoglobin 12.0 g/dL (12.0-16.0) Hematocrit 35.7 % (37-47) Mean Corpuscular Volume 80.4 fL (80-100) Mean Corpuscular Hemoglobin 27.0 pg (25-34) Mean Corpuscular Hemoglobin Concent 33.6 g/dl (32-36) Platelet Count 468 K/uL (130-400) Mean Platelet Volume 8.4 fL (7.4-10.4) Neutrophils (%) (Auto) 63.9 % Lymphocytes (%) (Auto) 26.6 % Monocytes (%) (Auto) 6.6 % Eosinophils (%) (Auto) 1.9 % Basophils (%) (Auto) 0.5 % Neutrophils # (Auto) 4.14 K/uL (1.4-6.5) Lymphocytes # (Auto) 1.72 K/uL (1.2-3.4) Monocytes # (Auto) 0.43 K/uL (0.11-0.59) Eosinophils # (Auto) 0.12 K/uL (0-0.5) Basophils # (Auto) 0.03 K/uL (0-0.2) RDW Standard Deviation 43.5 fL (36.4-46.3) RDW Coefficient of Variation 14.9 % (11.5-14.5) Immature Granulocyte % (Auto) 0.5 % Immature Granulocyte # (Auto) 0.03 K/uL (0.00-0.02) Prothrombin Time 10.0 SECONDS (9.0-12.0) Prothromb Time International Ratio 1.0 (0.9-1.1) Anion Gap 6.0 mmol/L (3-11) Est Creatinine Clear Calc Drug Dose 85.2 ml/min Estimated GFR () 93.5 Estimated GFR (Non- 80.7 BUN/Creatinine Ratio 13.1 (10-20) Calcium Level 9.4 mg/dl (8.5-10.1) Total Bilirubin 0.2 mg/dl (0.2-1) Aspartate Amino Transf (AST/SGOT) 15 U/L (15-37) Alanine Aminotransferase (ALT/SGPT) 33 U/L (12-78) Alkaline Phosphatase 77 U/L (45-117) Total Protein 8.0 gm/dl (6.4-8.2) Albumin 3.9 gm/dl (3.4-5.0) Globulin 4.1 gm/dl (2.5-4.0) Albumin/Globulin Ratio 0.9 (0.9-2) Lipase 202 U/L (73-393) Urine Color YELLOW Urine Appearance CLEAR (CLEAR) Urine pH 5.0 (4.5-7.5) Urine Specific [place] 1.022 (1.000-1.030) Urine Protein NEG (NEG) Urine Glucose (UA) NEG (NEG) Urine Ketones NEG (NEG) Urine Occult Blood TRACE (NEG) Urine Nitrite NEG (NEG) Urine Bilirubin NEG (NEG) Urine Urobilinogen NEG (NEG) Urine Leukocyte Esterase NEG (NEG) Urine WBC (Auto) 1-5 /hpf (0-5) Urine RBC (Auto) 0-4 /hpf (0-4) Urine Hyaline Casts (Auto) 0 /lpf (0-5) Urine Epithelial Cells (Auto) >30 /lpf (0-5) Urine Bacteria (Auto) NEG (NEG) Urine Test NEG (NEG) Date/Time Source Procedure Growth Status 10/07/17 11:55 Stool C.difficile Toxin B Gene (PCR) - Final No C. difficile toxin B gene detected Complete Medications Administered Medications (Trade) Dose Ordered Sig/Farooq Route Start Time Stop Time Status Last Admin Dose Admin Morphine Sulfate (MoRPHine SULFATE INJ) 4 mg ONE STAT IV 10/07/17 11:34 10/07/17 11:38 DC 10/07/17 11:53 4 MG Promethazine HCl 12.5 mg/Sodium Chloride 50.5 ml @ 204 mls/hr NOW STAT IV 10/07/17 11:34 10/07/17 11:48 DC 10/07/17 11:53 204 MLS/HR Sodium Chloride 1,000 ml @ 999 mls/hr Q1H1M ONCE IV 10/07/17 11:45 10/07/17 12:45 DC 10/07/17 11:53 999 MLS/HR Hydrocortisone (Proctozone Hc 2.5% Crm) 1 appln NOW ONCE EXT 10/07/17 13:45 10/07/17 13:46 DC 10/07/17 13:44 1 APPLN ED Course Patient was seen and examined Vital signs including blood pressure were reviewed medications list was verified with patient Labs were obtained, and a saline lock was established The patient was medicated with morphine 4 mg IV and Phenergan 12.5 mg IV. She was hydrated with 1 L of normal saline. Upon reassessment, the patient was asking for more pain medication. This was discussed with my supervising physician. I thoroughly reviewed the results of the workup with the patient. She voiced understanding. She was comfortable being discharged home. The patient was given Anusol cream I reviewed discharge instructions the patient. They voiced understanding and had no further questions. Medical Decision Differential diagnosis: External versus internal hemorrhoids, colonic mass, lower GI hemorrhage, This patient is a 37-year-old female that presents emergency department complaining of rectal bleeding, abdominal pain and nausea since this morning. On exam, she was anxious. She had mild diffuse tenderness of the abdomen with no focal tenderness or rebound tenderness. She did have blood in her stool. Rectal exam revealed external hemorrhoids. Her labs reveal no leukocytosis. Her H&H are stable. I reviewed the patient's endoscopy and colonoscopy performed by Dr. Cat on September 29 of this year. She does have moderate internal hemorrhoids, which is likely the source of her bleeding. As the patient's vital signs and blood counts are stable, I believe she is stable to be discharged home with follow-up from GI. She will agree with worsening symptoms. This chart was completed in part utilizing [employer] Voice Recognition software. Attempts were made to minimize the grammatical errors, random word insertions, pronoun errors and incomplete sentences. Any formal questions or concerns about the content, text or information contained within the body of this dictation should be directly addressed to the provider for clarification. Impression Primary Impression: Internal hemorrhoid, bleeding Departure Information Dispostion Home / Self-Care Condition GOOD Referrals Perez Richter M.D. (PCP) Jorden Cat, DO Patient Instructions My [facility] Additional Instructions You have been evaluated in the emergency department for rectal bleeding. This is likely due to hemorrhoids inside the rectum. Please apply Anusol cream every 6 hours as needed for discomfort Please call your GI doctor tomorrow for a follow-up appointment. Please continue other medications as prescribed Please also follow-up with your primary care physician within the next 24-48 hours for recheck Do not hesitate to return with any new, worsening or concerning symptoms
[2017-10-07] MEDS ORDERED: SODIUM CHLORIDE 0.9% 1000ML 1,000 ML IV ONE (11:45)
[2017-10-07 11:54] LABS: BASO % 0.5 %; BASO ABS # 0.03 K/uL (0-0.2); EOS % 1.9 %; EOS ABS # 0.12 K/uL (0-0.5); HEMATOCRIT 35.7 % (37-47); IG# 0.03 K/uL (0.00-0.02); LYMPH % 26.6 %; LYMPH ABS # 1.72 K/uL (1.2-3.4); MEAN CELL VOLUME 80.4 fL (80-100); MEAN CORPUSCULAR HGB CONC 33.6 g/dl (32-36); MEAN PLATELET VOLUME 8.4 fL (7.4-10.4); MONO % 6.6 %; MONO ABS # 0.43 K/uL (0.11-0.59); NEUT % 63.9 %; NEUT ABS # 4.14 K/uL (1.4-6.5); PLATELET COUNT 468 K/uL (130-400); RED CELL DISTRIBUTION WIDTH CV 14.9 % (11.5-14.5); RED CELL DISTRIBUTION WIDTH SD 43.5 fL (36.4-46.3); WHITE BLOOD COUNT 6.47 K/uL (4.8-10.8)
[2017-10-07 12:08] LABS: ALBUMIN 3.9 gm/dl (3.4-5.0); CALCIUM 9.4 mg/dl (8.5-10.1); CREATININE 0.92 mg/dl (0.60-1.20); POTASSIUM 3.8 mmol/L (3.5-5.1)
[2017-10-07] MEDS ORDERED: HYDROCORTISONE HC 2.5% CRM 30GM TUBE EXT ONE (13:45)
[2017-10-07 13:54] VITALS: BP 147/92; PULSE 85; O2SAT 98
== END 2017-10-07 13:50 | disposition home or self-care (01) ==
LOC: C.EDB 10:47 → C.EDC 13:50
DX: K64.8 Other hemorrhoids (principal); J45.909 Unspecified asthma, uncomplicated; I10 Essential (primary) hypertension; F31.9 Bipolar disorder, unspecified; E87.6 Hypokalemia; K58.9 Irritable bowel syndrome, unspecified; N73.9 Female pelvic inflammatory disease, unspecified; F17.200 Nicotine dependence, unspecified, uncomplicated

== ENCOUNTER → 2017-11-15 | Outpatient (CLI) | payer OTHER ==
[~2017-11-15] MED LIST changes: +HYDR5SYP11 PO; -ONDA4TAB10 SL
--- NOTE | 2017-11-15 20:45 | DIAGNOSTIC IMAGING REPORT ---
THORACIC SPINE WITHOUT HISTORY: Pain THORACIC/LUMBAR BACK PAIN,THORACIC DISC DISEASE TECHNIQUE: Multiplanar multisequence MRI of the thoracic spine was performed without the use of contrast. COMPARISON: None. FINDINGS: Vertebral body stature demonstrates slight wedge deformity of T8. Signal characteristics of all remaining osseous structures are unremarkable. There is no significant bone marrow edema. Signa characteristics of the thoracic cord are unremarkable. Transaxial images throughout the entire thoracic region are negative for disc herniation or spinal stenosis from T1 through the superior to the aspect of T8. There is a focal left posterior disc herniation at T8-T9 creating moderate deformity of the left anterolateral aspect of the thoracic cord. T9-T10 level shows a similar left posterior disc herniation again creating focal deformity of the left anterior aspect of the thoracic cord. The T 10 T11 level again shows a similar disc herniation creating focal deformity of the thoracic cord has left anterior aspect. Neuroforamina are patent bilaterally at all levels. There is no significant compromise of those structures. IMPRESSION: 1. Slight wedge deformity superior endplate T8 considered old. 2. No evidence for an acute compression deformity. 3. 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 4. No significant compromise of the neuroforamina. The above report was generated using voice recognition software. It may contain grammatical, syntax or spelling errors. Electronically signed by: Perez Mirza M.D. 11/15/2017 8:43 PM Dictated Date/Time: 11/15/2017 8:38 PM
--- NOTE | 2017-11-15 21:02 | DIAGNOSTIC IMAGING REPORT ---
LUMBAR SPINE W/O CONTRAST HISTORY: Pain THORACIC/LUMBAR BACK PAIN,THORACIC DISC DISEASE TECHNIQUE: Multiplanar multisequence MRI of the lumbar spine was performed without the use of contrast. COMPARISON: None. FINDINGS: For the purpose of the report the L5-S1 disc space will be located on axial image 27 of 30. Normal signal characteristics of the vertebral bodies as well as intervertebral discs. L1-L2: No significant central canal or neural foraminal narrowing. L2-L3: No significant central canal or neural foraminal narrowing. L3-L4: No significant central canal or neural foraminal narrowing. L4-L5: No significant central canal or neural foraminal narrowing. L5-S1: No significant central canal or neural foraminal narrowing. IMPRESSION: Normal study The above report was generated using voice recognition software. It may contain grammatical, syntax or spelling errors. Electronically signed by: Perez Mirza M.D. 11/15/2017 9:01 PM Dictated Date/Time: 11/15/2017 8:59 PM
== END | disposition home or self-care (01) ==
LOC: C.MRI 19:10
PROVIDERS: ATTEND Physician Assistant
DX: M51.24 Other intervertebral disc displacement, thoracic region (principal); G89.29 Other chronic pain; M51.34 Other intervertebral disc degeneration, thoracic region; N64.4 Mastodynia

== ENCOUNTER 2019-06-11 17:03 | Inpatient (IN) ==
[2019-06-11 18:10] LABS: Appearance Urine Turbid (Clear); Bacteria Urine Automated 2+ (Negative); Bilirubin Urine Negative (Negative); Blood Urine 2+ (Negative); Color Urine Yellow; Epithelial Cell Urine Auto >30 /lpf (0-5); Glucose Urine UA Negative (Negative); Ketones Urine Negative (Negative); Leukocyte Esterase Urine Negative (Negative); Nitrite Urine Negative (Negative); Protein Urine 2+ (Negative); RBC Urine Automated 0-4 /hpf (0-4); Specific Gravity Urine 1.023 (1.000-1.030); Urobilinogen Urine Negative (Negative)
[2019-06-11 18:16] LABS: Basophils # (auto) 0.02 K/uL (0-0.2); Basophils % (auto) 0.2 %; Eosinophils # (auto) 0.03 K/uL (0-0.5); Eosinophils % (auto) 0.4 %; Hematocrit (blood only) 40.4 % (37-47); Hemoglobin 13.6 g/dL (12.0-16.0); Immature Granulocytes # (auto) 0.02 K/uL (0.00-0.02); Immature Granulocytes % (auto) 0.2 %; Lymphocytes % (auto) 18.7 %; Mean Corpuscular Hemoglobin 27.8 pg (25-34); Mean Corpuscular Hgb Conc 33.7 g/dL (32-36); Mean Corpuscular Volume 82.4 fL (80-100); Mean Platelet Volume 8.9 fL (7.4-10.4); Monocytes # (auto) 0.39 K/uL (0.11-0.59); Monocytes % (auto) 4.6 %; Neutrophils # (auto) 6.49 K/uL (1.4-6.5); Neutrophils % (auto) 75.9 %; Platelet Count 509 K/uL (130-400); RDW Coefficient of Variation 13.2 % (11.5-14.5); RDW Standard Deviation 39.7 fL (36.4-46.3); White Blood Count 8.55 K/uL (4.8-10.8)
[2019-06-11 18:33] LABS: Albumin Level 4.1 gm/dl (3.4-5.0); Calcium 9.4 mg/dl (8.5-10.1); Creatinine Clr Calc Pharmacy 74.3 ml/min; Est GFR (African American) 82.9; Est GFR (Non-African American) 71.6; Potassium 3.5 mmol/L (3.5-5.1)
[2019-06-11 18:44] LABS: Bilirubin,Total 0.3 mg/dl (0.2-1); Globulin 4.3 gm/dl (2.5-4.0); Thyroid Stimulating Hormone 1.82 uIu/ml (0.300-4.500); Total Protein 8.4 gm/dl (6.4-8.2)
[2019-06-11 18:50] LABS: Amphetamines+Metham, Urine Neg (Neg); Barbiturates, Urine Neg (Neg); Benzodiazepine, Urine Neg (Neg); Cocaine, Urine Neg (Neg); MDMA (Ecstacy), Urine Pos (Neg); Methadone, Urine Neg (Neg); Opiate, Urine Neg (Neg); Phencyclidine, Urine Neg (Neg)
[2019-06-11 19:04] LABS: Acetaminophen < 2 ug/ml (10-30); Salicylate 3.3 mg/dl (2.8-20)
[2019-06-11] MEDS ORDERED: ACETAMINOPHEN 500 MG TAB PO PRN (19:42)
[2019-06-11] MEDS ORDERED: QUETIAPINE FUMARATE 25 MG TABLET PO PRN (19:42)
--- NOTE | 2019-06-11 19:42 | Emergency Department Note ---
Entered by Lamont Amin acting as a scribe for History of Present Illness General Chief complaint: Mental Health Evaluation Stated complaint: REFERRED FOR MENTAL HEALTH EVAL Time Seen by Provider: 06/11/19 17:19 Source: patient History of Present Illness Onset (ago): day(s) (few) Pain Consistency: + other (worsening) Quality: + other (depression) Exacerbated By: + other (time of year around her mother's ) Associated symptoms: + denies other symptoms (congestion) and + cough; no chest pain, no fever/chills and no shortness of breath The patient is a 38 y/o female who presents to the ED w/ CC of worsening depression beginning a few days ago. The patient states her mother 16 years ago in June, and she has a hard time coping with her every year around this time. She reports her depression increased over the past few days secondary to the . The patient notes she does not currently have thoughts of wanting to kill herself, but she has had intermittent thoughts to walk into traffic. She states she has a history of trying to kill herself shortly after her mother's by drinking alcohol and taking pills. The patient reports she has been given contact information for trauma therapists from her current therapist in [place]. She notes she last saw her current therapist in April, and she has another appointment in July, but she is able to see them sooner if needed. The patient states she has not made an appointment to see them because she can not take her anxiety anymore. She reports she currently takes Klonopin, Seroquel, and Trileptal. The patient notes she takes Klonopin in the morning and then 300mg of Trileptal, 0.75mg of Klonopin, and 100mg of Seroquel in the morning. She states she currently feels hopeless and notes she needs something don because she is very anxious. The miya ent reports she does not know if her medication is strong enough. She notes a mild cough and that she is a current smoker. The patient denies congestion, fevers, chills, chest pain, shortness of breath, alcohol use, drug use, and auditory or visual hallucination. Psychiatric Case management states the patient takes Klonopin. They report she thinks someone is coming into her apartment and steeling it because she does not have any left, and she cannot refill her prescription until the . Home Medications Home Medications Medication Instructions Recorded Confirmed Type bupropion HCl [Wellbutrin SR] 150 mg PO AMPM 05/29/18 06/11/19 History clonazepam [Klonopin] 0.5 mg PO QAM 05/29/18 06/11/19 History omeprazole 40 mg PO BID 05/29/18 06/11/19 History oxcarbazepine [Trileptal] 300 mg PO BID 05/29/18 06/11/19 History acetaminophen [Tylenol Extra 500 mg PO Q6H PRN 10/27/18 06/11/19 History Strength] quetiapine 12.5 mg PO QDL PRN 10/27/18 06/11/19 History quetiapine 75 mg PO HS 10/27/18 06/11/19 History clonazepam 0.75 mg PO HS 06/11/19 06/11/19 History Allergies Allergy/AdvReac Type Severity Reaction Status Date / Time amoxicillin Allergy Intermediate hives Verified 02/06/19 23:07 aspirin Allergy Intermediate PT. GETS Verified 02/06/19 23:07 HIVES dicyclomine Allergy Intermediate RASH Unverified 02/06/19 23:07 hydromorphone Allergy Intermediate FELT Verified 02/06/19 23:07 THROAT DISCOMFORT, SWITCHED TO MSO4 & FINE ketorolac Allergy Intermediate ulcers in Verified 02/06/19 23:07 stomach ibuprofen Allergy Mild Unknown Verified 02/06/19 23:07 tramadol Allergy Mild headaches Verified 02/06/19 23:07 adhesive Allergy Unknown ERYTHEMA Verified 02/06/19 23:07 WITH "ADHESIVE TAPE" Cipro Allergy Unknown hives Verified 10/07/17 11:07 ciprofloxacin Allergy Unknown hives Verified 02/06/19 23:07 clavulanic acid Allergy Unknown RASH + Verified 02/06/19 23:07 HIVES, Augmentin fentanyl Allergy Unknown THROAT Verified 02/06/19 23:07 TIGHTENS hydralazine Allergy Unknown - Verified 02/06/19 23:07 meperidine Allergy Unknown UNKN Verified 02/06/19 23:07 metoclopramide Allergy Unknown SHAKING/SEVEN Verified 02/06/19 23:07 MORS Penicillins Allergy Unknown RASH,HIVES Verified 02/06/19 23:07 ALSO AUGMENTIN Quinolones Allergy Unknown RASH Verified 02/06/19 23:07 ondansetron AdvReac Severe SEVERE Unverified 02/06/19 23:07 HEADACHES diphenhydramine AdvReac Intermediate anxiety Verified 02/06/19 23:07 prednisone AdvReac Unknown worsening Verified 02/06/19 23:07 anxiety Past Med/Surg History Medical History Acute bronchitis (Inactive) Ankle sprain (Resolved) External otitis of right ear (Resolved) Gastric polyp (Chronic Unknown) Hypokalemia (Resolved) IBS (irritable bowel syndrome) (Chronic) Injury of right ankle (Resolved) Knee contusion (Resolved) Left ankle injury (Resolved) Left knee injury (Resolved) Pain following oral surgery (Resolved) Pain, dental (Inactive) Pelvic pain (Inactive) Pyelonephritis, acute (Resolved) Right upper quadrant abdominal pain (Inactive) Wrist injury (Resolved) Surgical History Hx of appendectomy (Chronic) S/P removal of left ovary (Chronic) Family History Other Cancer Social History Preferred Language: Setswana Communication Ability: Effective Operations Analyst Required: No Beliefs That Will Affect Care: None Feels Safe at Home: Yes Smoking Status: Current every day smoker Tobacco Type: cigarettes ; Review of Systems See HPI for pertinent positives & negatives. and A total of 10 systems reviewed and were otherwise negative Physical Exam Vital Signs Vital Signs - 24 hr 06/11/19 17:05 06/11/19 19:43 06/11/19 20:00 Temperature 36.7 C Temperature Source Oral Pulse Rate 121 H Pulse Rate [Finger] 111 H Respiratory Rate 22 20 Respiratory Effort / Characteristics Spontaneous Respiratory Depth Normal Blood Pressure 192/97 H Blood Pressure [Left Arm] 169/97 H Blood Pressure [Right Arm] 178/145 H Blood Pressure Mean 128 Blood Pressure Mean [Left Arm] 121 Blood Pressure Mean [Right Arm] 156 Blood Pressure Position Sitting Blood Pressure Position [Right Arm] Sitting Pulse Oximetry 100 100 Oxygen Delivery Method Room Air Room Air Sepsis Recent Fever Within 48 Hours No Sepsis New/Unexplained Change in Mental Status No Sepsis Action Taken by Nursing No Action Required GENERAL: Awake, alert, melancholy and anxious-appearing, in no distress HENT: Normocephalic, atraumatic. Oropharynx unremarkable. EYES: Normal conjunctiva. Sclera non-icteric. NECK: Supple. No nuchal rigidity. FROM. No JVD. RESPIRATORY: CTAB. CARDIAC: Regular rate, normal rhythm. Extremities warm and well perfused. Pulses equal. ABDOMEN: Soft, non-distended. No tenderness to palpation. No rebound or guarding. No masses. RECTAL: Deferred. MUSCULOSKELETAL: Chest examination reveals no tenderness. The back is symmetrical on inspection without obvious abnormality. There is no CVA t enderness to palpation. No joint edema. LOWER EXTREMITIES: Calves are equal size bilaterally and non-tender. No edema. No discoloration. NEURO: Normal sensorium. No sensory or motor deficits noted. SKIN: No rash or jaundice noted. PSYCH: Pt admits to suicidal ideation. Depressed affect. Hopelessness. No auditory hallucinations. Course Course 174: Past medical records reviewed. The patient was evaluated in room A06. A complete history and physical exam was performed. 2116: The patient was accepted to [address] [place] [address]. Administered Medications Discontinued Medications Acetaminophen (Tylenol) 500 mg PO Q6H PRN PRN Reason: Pain Stop: 07/11/19 19:41 Last Admin: 06/11/19 20:52 Dose: 500 mg Documented by: [id number] Bupropion HCl (Wellbutrin-Sr) 150 mg PO BID HUBERT Stop: 07/11/19 20:59 Last Admin: 06/11/19 20:22 Dose: Not Given Documented by: [id number] Clonazepam (Klonopin) 0.75 mg PO HS HUBERT Stop: 07/11/19 20:59 Last Admin: 06/11/19 20:47 Dose: 0.75 mg Documented by: [id number] Oxcarbazepine (Trileptal) 300 mg PO BID HUBERT Stop: 07/11/19 20:59 Last Admin: 06/11/19 20:49 Dose: 300 mg Documented by: [id number] Pantoprazole Sodium (Protonix) 40 mg PO BID HUBERT Stop: 07/11/19 20:59 Last Admin: 06/11/19 20:48 Dose: 40 mg Documented by: [id number] Quetiapine Fumarate (Seroquel) 75 mg PO HS HUBERT Stop: 07/11/19 20:59 Last Admin: 06/11/19 20:49 Dose: 75 mg Documented by: [id number] Medical Decision Making Differential Diagnosis Differential diagnoses considered include mood disorder, infection, hypoglyc emia, electrolyte abnormalities, cardiac sources, intracerebral event, toxicologic, neurologic, as well as others. Medical Records Attestation: I reviewed the patient's medical records. Home Medications Current Medication List: was personally reviewed by me Laboratory Data Attestation: I reviewed the patient's lab results. Result diagrams: 06/11/19 18:04 06/11/19 18:04 Lab Results 06/11/19 06/11/19 06/11/19 Range/Units 18:04 18:04 18:04 WBC 8.55 (4.8-10.8) K/uL RBC 4.90 (4.2-5.4) M/uL Hgb 13.6 (12.0-16.0) g/dL Hct 40.4 (37-47) % MCV 82.4 (80-100) fL MCH 27.8 (25-34) pg MCHC 33.7 (32-36) g/dL RDW Std Deviation 39.7 (36.4-46.3) fL RDW Coeff of Amirah 13.2 (11.5-14.5) % Plt Count 509 H (130-400) K/uL MPV 8.9 (7.4-10.4) fL Immature Gran % (Auto) 0.2 % Neut % (Auto) 75.9 % Lymph % (Auto) 18.7 % Ripley % (Auto) 4.6 % Eos % (Auto) 0.4 % Baso % (Auto) 0.2 % Immature Gran # (Auto) 0.02 (0.00-0.02) K/uL Neut # (Auto) 6.49 (1.4-6.5) K/uL Lymph # (Auto) 1.60 (1.2-3.4) K/uL Ripley # (Auto) 0.39 (0.11-0.59) K/uL Eos # (Auto) 0.03 (0-0.5) K/uL Baso # (Auto) 0.02 (0-0.2) K/uL Sodium 135 L (136-145) mmol/L Potassium 3.5 (3.5-5.1) mmol/L Chloride 101 (98-107) mmol/L Carbon Dioxide 23 (21-32) mmol/L Anion Gap 11.0 (3-11) BUN 9 (7-18) mg/dl Creatinine 1.01 (0.6-1.2) mg/dl Est Cr Clr Drug Dosing 74.3 ml/min Est GFR ( Amer) 82.9 Est GFR (Non-Af Amer) 71.6 BUN/Creatinine Ratio 9.0 L (10-20) Glucose 111 H (70-99) mg/dl Calcium 9.4 (8.5-10.1) mg/dl Total Bilirubin 0.3 (0.2-1) mg/dl AST 13 L (15-37) U/L ALT 27 (12-78) U/L Alkaline Phosphatase 89 (45-117) U/L Total Protein 8.4 H (6.4-8.2) gm/dl Albumin 4.1 (3.4-5.0) gm/dl Globulin 4.3 H (2.5-4.0) gm/dl Albumin/Globulin Ratio 1.0 (0.9-2) TSH 1.820 (0.300-4.500) uIu/ml Salicylates 3.3 (2.8-20) mg/dl Acetaminophen < 2 L (10-30) ug/ml Ethyl Alcohol mg/dL (0-3) mg/dl 06/11/19 Range/Units 18:04 WBC (4.8-10.8) K/uL RBC (4.2-5.4) M/uL Hgb (12.0-16.0) g/dL Hct (37-47) % MCV (80-100) fL MCH (25-34) pg MCHC (32-36) g/dL RDW Std Deviation (36.4-46.3) fL RDW Coeff of Amirah (11.5-14.5) % Plt Count (130-400) K/uL MPV (7.4-10.4) fL Immature Gran % (Auto) % Neut % (Auto) % Lymph % (Auto) % Ripley % (Auto) % Eos % (Auto) % Baso % (Auto) % Immature Gran # (Auto) (0.00-0.02) K/uL Neut # (Auto) (1.4-6.5) K/uL Lymph # (Auto) (1.2-3.4) K/uL Ripley # (Auto) (0.11-0.59) K/uL Eos # (Auto) (0-0.5) K/uL Baso # (Auto) (0-0.2) K/uL Sodium (136-145) mmol/L Potassium (3.5-5.1) mmol/L Chloride (98-107) mmol/L Carbon Dioxide (21-32) mmol/L Anion Gap (3-11) BUN (7-18) mg/dl Creatinine (0.6-1.2) mg/dl Est Cr Clr Drug Dosing ml/min Est GFR ( Amer) Est GFR (Non-Af Amer) BUN/Creatinine Ratio (10-20) Glucose (70-99) mg/dl Calcium (8.5-10.1) mg/dl Total Bilirubin (0.2-1) mg/dl AST (15-37) U/L ALT (12-78) U/L Alkaline Phosphatase (45-117) U/L Total Protein (6.4-8.2) gm/dl Albumin (3.4-5.0) gm/dl Globulin (2.5-4.0) gm/dl Albumin/Globulin Ratio (0.9-2) TSH (0.300-4.500) uIu/ml Salicylates (2.8-20) mg/dl Acetaminophen (10-30) ug/ml Ethyl Alcohol mg/dL < 3.0 (0-3) mg/dl Blood Pressure Blood Pressure Findings: Elevated blood pressure Blood Pressure Disposition: further management by hospitalist MDM Narrative The patient is a pleasant 38-year-old woman with a past medical history of anxiety and depression who presents emergency department with worsening depression anxiety and hopelessness with intermittent thoughts of suicide per hpi. On arrival patient is melancholy and anxious appearing but no acute distress, afebrile hypertension 190/90s and otherwise stable vital signs. She admits to feeling hopeless and increasingly depressed where she feels she needs inpatient psychiatric admission. June is frequently a time of increased sadness for her as this is when her mother's occurred years ago. Otherwise, the patient's exam was unremarkable. W BC, H/H within normal limits. Platelets 509, approximately two prior values. Chemistry without acidosis. Electrolytes and LFTs unremarkable. UA with epithelial cells and patient denies any urinary symptoms. Will await for cultures to inform need for treatment. Patient was ordered for home medications including Klonopin and upon administration her blood pressure improved to 130s/90-100s. Patient was medically cleared. Patient is agreeable for inpatient psychiatric admission. Patient was accepted to [facility] [address]. Impression & Plan Suicidal ideation, Depression Discharge Plan Visit Data *Final* Discharge Date/Time: 06/11/19 21:16 Chief Complaint: Mental Health Evaluation Stated Complaint: REFERRED FOR MENTAL HEALTH EVAL ED Provider: Mal Medley Discharge Problem: Suicidal ideation, Depression Patient Disposition: Admitted As Inpatient Discharge Instructions Interventions: ED Discharge Assessment Last Done: 06/11/19 21:16 Discharge Problem: Depression Qualifiers: Depression Type: unspecified Qualified Code(s): F32.9 - Major depressive disorder, single episode, unspecified The scribe's documentation has been prepared under my direction and personally reviewed by me in its entirety. I confirm that the note above accurately reflects all work, treatment, procedures, and medical decision making performed by me.
[2019-06-11] MEDS ORDERED: ALUMINUM/MAGNESIUM SUSP 30 ML UDC PO PRN (20:32)
[2019-06-11] MEDS ORDERED: MAGNESIUM HYDROXIDE SUSP 30 ML UDC PO PRN (20:32)
[2019-06-11] MEDS ORDERED: BISMUTH SUBSALICYLATE PER ML OMNICELL CHARGE PO PRN (20:32)
[2019-06-11] MEDS ORDERED: SODIUM CHLORIDE 0.65% NA SOLN 45 ML (OCEAN) PRN (20:32)
[2019-06-11] MEDS ORDERED: OXcarbazepine 150 MG TABLET PO SCH (21:00)
[2019-06-11] MEDS ORDERED: PANTOprazole 40 MG TAB PO SCH (21:00)
[2019-06-11] MEDS ORDERED: NON-FORMULARY MEDICATION (Omeprazole 40 MG) PO SCH (21:00)
[2019-06-11] MEDS ORDERED: BuPROPion SR 150 MG TABCR PO SCH (21:00)
[2019-06-11] MEDS ORDERED: CLONAZEPAM PO SCH (21:00)
[2019-06-11] MEDS ORDERED: QUETIAPINE FUMARATE 100 MG TABLET PO SCH (21:00)
[2019-06-11] MEDS ORDERED: clonazePAM 0.5 MG TAB PO SCH (21:00)
[2019-06-12] MEDS: ACETAMINOPHEN 325 MG TAB PO PRN ×4 (02:07→22:09)
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
[2019-06-12] MEDS ORDERED: clonazePAM 0.5 MG TAB PO SCH (09:00)
[2019-06-12] MEDS: OXcarbazepine 150 MG TABLET PO SCH ×2 (11:37→21:26)
[2019-06-12] MEDS: clonazePAM 0.5 MG TAB PO PRN (13:19)
[2019-06-12] MEDS ORDERED: BuPROPion SR 100 MG TABCR PO SCH (17:00)
[2019-06-12] MEDS: clonazePAM 0.5 MG TAB PO SCH (21:25)
[2019-06-12] MEDS: QUETIAPINE FUMARATE 25 MG TABLET PO SCH (21:26)
[2019-06-12] MEDS: QUETIAPINE FUMARATE 100 MG TABLET PO SCH (21:26)
[2019-06-12] MEDS: PANTOprazole 40 MG TAB PO SCH (21:26)
[2019-06-13] MEDS: ACETAMINOPHEN 325 MG TAB PO PRN ×2 (06:09→19:36)
[2019-06-13 07:29] LABS: Glucose Fasting 111 mg/dl (70-99)
[2019-06-13 07:35] LABS: Chol HDL Ratio 9; Cholesterol 286 mg/dl (0-200); HDL Cholesterol 31 mg/dl; Triglycerides 420 mg/dl (0-150)
[2019-06-13] MEDS: PANTOprazole 40 MG TAB PO SCH ×2 (08:10→21:34)
[2019-06-13] MEDS: OXcarbazepine 150 MG TABLET PO SCH ×2 (08:10→21:35)
[2019-06-13] MEDS: BuPROPion SR 100 MG TABCR PO SCH ×2 (08:11→14:03)
[2019-06-13] MEDS: clonazePAM 0.5 MG TAB PO PRN (08:12)
--- NOTE | 2019-06-13 10:47 | Psychiatric Progress Note ---
Date of Service June 13, 2019 Impression / Recommendations Impression 38-year-old female with a history of bipolar 1 and anxiety NOS who presents with suicidal thoughts in the context of worsening anxiety, she ran out of clonazepam early. She also reports some confusion with her quetiapine dosing, which likely exacerbated her chronic anxiety. We will titrate quetiapine and coordinate care regarding her clonazepam prescription, given concerns for overuse, or conversely difficulty safely managing the medication, as she reports suspicions that her neighbor stole it. Patient is agreeable with referrals for therapy and case management. We will plan to schedule a phone meeting with her prior to discharge, in order to review safety and aftercare plans. Inpatient treatment is medically necessary due to the severity of symptoms and risk for suicide if discharged prematurely. (1) Anxiety: 06/12 -patient reports SI triggered by severe anxiety, which occurred in the context of running out of clonazepam early. She denies overusing it, and states she suspects her neighbor stole it. However, PDMP shows frequent early refills. -Increase quetiapine as below. Continue home dose of clonazepam. Pt asking for dose increase but advised would need to discuss w/ outpatient PA as she has been filling early and concern for overuse. She then said she would just keep her current dose. States she got a lock box for her meds. -Coordinate care with [facility]. -Work on healthy coping skills and behavioral techniques for managing anxiety, as this is chronic and long-standing. Refer for individual therapy. 06/13 - Reporting significant improvement in level of anxiety today - Denies side effects related to medication adjustments - Referrals have been sent for outpatient therapy and case management after discharge (2) Bipolar affective, depress, unspec: 06/12 -patient is a limited historian, and although she denies any history of manic or psychotic symptoms, she has a documented history of bipolar type I. She has been on Trileptal and bupropion for years, and reports quetiapine has been recently adjusted and has been helpful at higher doses, so is requesting to increase her at bedtime dose which is appropriate. Nursing staff confirms she is supposed to be taking 125 mg at bedtime, so will order that dose here and titrate further as needed. She does not know when she last had fasting labs, so will order cholesterol panel and glucose tomorrow for monitoring on an atypical antipsychotic. -Request records from [facility] and coordinate care. Refer for outpatient therapy. Consider [facility] referral. 06/13 - Reports significant improvement in mood since admission - Fasting glucose and lipid panel ordered for this morning, reviewed with patient - glucose elevated at 111; triglycerides elevated at 420; total cholesterol elevated at 286. - Recommend PCP follow-up to review the above concerns - patient stating she has been treated with medication in the past for high cholesterol - Was agreeable with referrals for outpatient therapy and case management - Phone meeting with will need to be scheduled in order to discuss safety and discharge planning Risk Factors Assessment Male: No : Yes Do You Have Access To A Gun?: No Health Problems: No Mental Health Diagnoses: Yes Substance Use Disorders: No Previous Attempt: Yes Family History of Suicide: No Previous Psychiatric Hospitalization: Yes Hopelessness: Yes Smoker: Yes Protective Factors Assessment : Yes Responsible for Young Children: Yes Employed: No Supportive Family: Yes Good Rapport with Provider: Yes Interval History Identifying Information LUIS LEBRON is a 38-year-old F who currently lives in [place] with her and child, has a history of bipolar disorder per her report, and was admitted on 06/11/19 20:32 on a 201 voluntary commitment for suicidal ideation. Chief Complaint "Ever since my Seroquel went back up to where it's supposed to be, I have been feeling really great." Review of Systems Notes Constitutional: reports significantly improved sleep last evening Cardiovascular: denied Respiratory: denied Gastrointestinal: denied Neurological: denied Psychiatric: denies symptoms other than stated above Total of at least 10 systems reviewed, pertinent positives as above and in HPI. Sleep Information Total Hours of Sleep: 7 Meal Information Percent Meal Consumed - Breakfast: 25 Percent Meal Consumed - Lunch: 25 Percent Meal Consumed - Dinner: 75 Subjective Subjective Patient was seen & assessed and interval progress reviewed with nursing and social work. Staff reports the patient has been participating in group and recreational programming. She still requires a family meeting with her , which is likely to be scheduled via phone. Patient was seen today to assess progress since admission. Patient tells this provider that she has noticed significant improvements in her mood, sleep, and anxiety today. Patient states "ever since my Seroquel went back up to where it is supposed to be, I have been feeling really great." Patient states that "my anxiety is gone, I slept through the whole night, and I am not suicidal. I think my mood altogether is improved." Patient states she rated her mood a 78/10 this morning during community meeting. Patient reports that this is a comfortable range for her, stating she has not felt "this good" in about 2 or 3 weeks. Patient states she is satisfied with medication adjustments, and does not anticipate needing any additional changes. She did have fasting labs completed this morning, which were reviewed with her during our visit. Patient states that she has been referred for case management, and is interested in outpatient therapy as well. She states she is hopeful for discharge "by the end of the week", and denies other specific needs or concerns today. Physical Exam Psychiatric Orientation: alert, oriented x 3 and cooperative (And pleasant) Apperance: appropriately dressed (Casually, in T-shirt and scrub pants) and appropriately groomed Eye Contact: good eye contact Motor Behavior: steady gait and station and no abnormal motor movements Speech: normal rate/rhythm/volume of speech Affect: euthymic affect and mood congruent with affect Mood: no depressed mood and no anxious mood "I am not anxious, I am not depressed. It feels good to feel like this again." Thought Process: goal directed thought process Thought Content: reality based without delusions; no hopelessness Suicidal Thoughts: denies suicidal thoughts and denies suicidal intent Homicidal Thoughts: denies homicidal thoughts Hallucinations: no auditory hallucinations and no visual hallucinations Cognition: attention grossly intact and language grossly intact Insight: + fair insight Judgement: + fair judgement Vital Signs (Past 24 Hours) Last Vital Signs Temp 36.9 C 06/13/19 06:00 Pulse 108 H 06/13/19 06:28 Resp 18 06/13/19 06:00 BP 115/81 06/13/19 06:28 Pulse Ox 96 06/11/19 21:32 Results & Data Laboratory Results Laboratory Results - last 24 hr 06/11/19 06/13/19 17:58 06:44 Fasting Glucose 111 H Triglycerides 420 H Cholesterol 286 H LDL Cholesterol, Calc VLDL Cholesterol, Calc HDL Cholesterol 31 Cholesterol/HDL Ratio 9 POC Ur Test NEG Current Inpatient Medications Current Inpatient Medications: Current Inpatient Medications Acetaminophen (Tylenol) 650 mg PO Q4H PRN PRN Reason: Headache or Minor Fever Stop: 07/11/19 20:31 Last Admin: 06/13/19 06:09 Dose: 650 mg Documented by: Al Hydrox/Mg Hydrox/Simethicone (Maalox) 30 ml PO Q4H PRN PRN Reason: GI Upset Stop: 07/11/19 20:31 Bismuth Subsalicylate (Kaopectate) 15 ml PO PRN PRN PRN Reason: Loose Stool Stop: 07/11/19 20:31 Bupropion HCl (Wellbutrin-Sr) 100 mg PO BID@0900,1400 [facility] Stop: 07/13/19 08:59 Last Admin: 06/13/19 08:11 Dose: 100 mg Documented by: Clonazepam (Klonopin) 0.5 mg PO DAILY PRN PRN Reason: Anxiety Stop: 07/12/19 11:12 Last Admin: 06/13/19 08:12 Dose: 0.5 mg Documented by: Clonazepam (Klonopin) 0.75 mg PO HS [facility] Stop: 07/12/19 21:59 Last Admin: 06/12/19 21:25 Dose: 0.75 mg Documented by: Hydroxyzine HCl (Vistaril) 50 mg PO HSZ PRN PRN Reason: Insomnia Stop: 07/11/19 20:31 Hydroxyzine HCl (Vistaril) 25 mg PO Q4H PRN PRN Reason: Anxiety Stop: 07/11/19 20:31 Last Admin: 06/12/19 02:06 Dose: 25 mg Documented by: Magnesium Hydroxide (Milk Of Magnesia) 30 ml PO DAILY PRN PRN Reason: Constipation Stop: 07/11/19 20:31 Oxcarbazepine (Trileptal) 300 mg PO BID [facility] Stop: 07/12/19 11:29 Last Admin: 06/13/19 08:10 Dose: 300 mg Documented by: Pantoprazole Sodium (Protonix) 40 mg PO BID [facility] Stop: 07/12/19 20:59 Last Admin: 06/13/19 08:10 Dose: 40 mg Documented by: Quetiapine Fumarate (Seroquel) 25 mg PO [facility] Stop: 07/12/19 21:59 Last Admin: 06/12/19 21:26 Dose: 25 mg Documented by: Quetiapine Fumarate (Seroquel) 100 mg PO [facility] Stop: 07/12/19 21:59 Last Admin: 06/12/19 21:26 Dose: 100 mg Documented by: Sodium Chloride ([place] Nasal) 1 - 2 sprays NA PRN PRN PRN Reason: Nasal Dryness/Congestion Stop: 07/11/19 20:31 Mental Health & Subst Abuse Tx Psychiatrist Date of Appointment with Psychiatrist: 07/12/19 Therapist Name of Therapist: Mai Punchboard Filling Machine Operator Name of Punchboard Filling Machine Operator: Denies/None Post Discharge Appointments Primary Care Physician Name Of Family Doctor: Mckenzie Delgado (1) Bipolar affective, depress, unspec Current episode severity: unspecified Qualified Code(s): F31.30 - Bipolar disorder, current episode depressed, mild or moderate severity, unspecified
[2019-06-13] MEDS: clonazePAM 0.5 MG TAB PO SCH (21:35)
[2019-06-13] MEDS: QUETIAPINE FUMARATE 25 MG TABLET PO SCH (21:36)
[2019-06-13] MEDS: QUETIAPINE FUMARATE 100 MG TABLET PO SCH (21:36)
[2019-06-14] MEDS: ACETAMINOPHEN 325 MG TAB PO PRN (06:35)
[2019-06-14] MEDS: OXcarbazepine 150 MG TABLET PO SCH (08:32)
[2019-06-14] MEDS: BuPROPion SR 100 MG TABCR PO SCH ×2 (08:32→13:25)
[2019-06-14] MEDS: PANTOprazole 40 MG TAB PO SCH (08:32)
[2019-06-14] MEDS: clonazePAM 0.5 MG TAB PO PRN (08:38)
--- NOTE | 2019-06-14 10:20 | Discharge Summary ---
Date of Service June 14, 2019 History of Present Illness Patient presented to the ER 06/11/2019 on referral from [facility] after an assessment in the field for worsening depression over the past few days, which she attributed to the holiday and anniversary of her mother's on Sofia 16 years ago. She also reported high levels of stress at home, as her child is diagnosed with epilepsy, autism, and ADHD. She reported thoughts of walking into traffic, and a history of a suicide attempt by overdose after her mother's . She reported having a insurance plan specialist who gave her information for trauma therapists, but had not scheduled appointment if she did not have time to make the phone call. She was requesting stronger medication, stating her outpatient clinician had been "messing with" her medication. She reported that someone is coming into her apartment and stealing her Klonopin, as she ran out early. She reported low mood, poor sleep, decreased appetite, panic attacks 2-3 times a day, and inability to cope. Her external medication history indicates she filled a prescription for clonazepam 0.5 mg tablets #75 on 05/19/2019. Laboratory workup was notable for normal TSH, negative test, contaminated urinalysis with culture pending, and UDS positive for MDMA. On my assessment, she reports high anxiety which she attributes to "messing my meds up." States she saw Kathryn ESTRADA at [facility] a month ago and her quetiapine was increased from 50mg to 75mg, but staff here contacted [facility] and her dose was reported as 150mg HS. She states the medication helps for anxiety, sleep and mood, and is also taking a 12.5mg prn dose daily for the past 1-2 weeks for anxiety. She reports episodic anxiety with heart racing, shakiness, tearfulness, and back pain that occur 2-3 times a day and lasts 15-20 min. Deep breathing, watching videos on her phone, and clonazepam are alleviating. Would like her clonazepam dose to be increased, states she asked her outpatient PA who declined to do that. States primary stressor is anniversary of mother's and the holidays, as mood is always lower this time of year. States son has been doing well and things are good at home. Reports SI that occurs "when mood is really really low, [place], so I've contemplated it, but wouldn't want to do that to my and my son, they are my world." She denies PTSD symptoms currently, denies any history of devan or psychosis, but says she has been diagnosed with "bipolar and schizoaffective." Has been on higher doses of quetiapine in the past, states she was "loopy" on 325mg daily. Per PDMP, she is filling #75 tabs of clonazepam 0.5mg early each month. Physical Exam Psychiatric Orientation: alert, oriented x 3 and cooperative Apperance: appropriately dressed and appropriately groomed Edentulous Eye Contact: good eye contact Motor Behavior: steady gait and station and no abnormal motor movements Speech: normal rate/rhythm/volume of speech (Speech slightly slurred/difficult to understand due to lack of teeth) Affect: euthymic affect and mood congruent with affect Mood: no depressed mood and no anxious mood "So much better!" Thought Process: goal directed thought process Thought Content: reality based without delusions Suicidal Thoughts: denies suicidal thoughts Homicidal Thoughts: denies homicidal thoughts Hallucinations: no auditory hallucinations Cognition: recent memory grossly intact, attention grossly intact and language grossly intact Insight: good insight Judgement: good judgement Vital Signs (Past 24 Hours) Last Vital Signs Temp 36.6 C 06/14/19 06:45 Pulse 72 06/14/19 06:46 Resp 18 06/14/19 06:45 BP 133/85 06/14/19 06:46 Pulse Ox 96 06/11/19 21:32 Principal Diagnosis Anxiety NOS (exacerbated by benzodiazepine withdrawal) Bipolar disorder NOS, most recent episode depressed Psychiatric Data The patient was hospitalized for 3 days. On admission, she was continued on her home dose of oxcarbazepine, bupropion was lowered to 100 mg twice daily due to her report of worsening anxiety on the higher dose, and her home dose of clonazepam was resumed. She had run out 2 days prior (so 10 days before she should have run out based on last fill date of 05/19/2019). She denied that she had been taking more than prescribed, and said she suspected her neighbor had come into her home and stolen her medication. She reported confusion about her quetiapine dose, and after coordinating with her outpatient clinic, it was determined that she was taking a lower dose than was prescribed. Her dose was increased to 125 mg at bedtime, which she tolerated well. Anxiety improved rapidly, and suicidal thoughts resolved. Mood and sleep also improved, and she actively participated in groups and therapy. She agreed to increased outpatient services and was referred to Abdiel Sanchez for case management and Piotr Mitchell for therapy. She had a family meeting with her and the social media content specialist on 06/13/2019; he was supportive and denied acute safety concerns. She stated she had already purchased a lock box to keep her medication in, and was advised that she is ultimately responsible for her medications and ensuring that they are stored safely and that she is taking them appropriately. On admission she requested that her clonazepam dose be increased, but when advised that I would want to talk to her outpatient clinician about this first, she changed her mind and said the current dose was fine. Her blood pressure was initially elevated, but came down throughout the course of her stay and was in the normal range her last 2 days on the unit. Day of Discharge Assessment Staff report the patient is endorsing good mood, denying suicidal thoughts, and reporting resolution of anxiety. She is eating and sleeping well, performing ADLs independently, and actively participating in groups and therapy. She had a good family meeting with her yesterday, and both of them were in favor of discharge today. She agreed to referrals for case management and therapy, and was able to review her discharge safety plan. On my assessment, she is reporting significant improvement in mood, resolution of anxiety, and denies suicidal thoughts. She states that she has not felt this well in some time, and has gotten good sleep the past couple of nights which she thinks is helping as well. She feels that her medication adjustments have been very beneficial, and is requesting to go home today, stating she misses her family and is looking forward to seeing them. She states willingness to follow up with outpatient treatment as indicated above, and to keep her medications in a lock box and take them only as prescribed. Transition of Care Transition Of Care Record: was reviewed with the patient Advance Directives Advance Directives Information Provided: Yes Advance Directives: No Mental Health Advance Directive: No Advance Directives on File: No Living Will: No Power of Inside Finisher: No Advance Directives Reason:: Declines as Mental Health Visit. Risk Factors Assessment Risk factors were mitigated by admission to the inpatient unit, use of medications to target mood, anxiety, and sleep, education about her diagnoses and the recommended treatment, education about use of controlled medications (benzodiazepines) including risks and the importance of taking them as prescribed and starting them safely, referring her for increased outpatient services (case management and therapy), involving her in groups and therapy, working on healthy coping skills and a discharge safety plan, and a family meeting with her . She is reporting improved mood, resolution of anxiety and suicidal thoughts, good sleep, and willingness to follow up with outpatient care. She is requesting discharge, and is she is no longer at acute risk of harm to herself, can be managed as an outpatient at this time. Male: No : Yes Do You Have Access To A Gun?: No Health Problems: No Mental Health Diagnoses: Yes Substance Use Disorders: No Previous Attempt: Yes Family History of Suicide: No Previous Psychiatric Hospitalization: Yes Hopelessness: Yes Smoker: Yes Protective Factors Assessment : Yes Responsible for Young Children: Yes Employed: No Supportive Family: Yes Good Rapport with Provider: Yes Tobacco Cessation at Discharge Tobacco Cessation Medication Prescribed at Discharge: Offered & Pt Refused Total Time Total Time Spent: Greater Than 30 Minutes Total Time Includes: Examination of the patient, Discharge Planning and Medication Reconciliation Discharge Data Lab Results 06/11/19 06/11/19 06/11/19 17:58 18:04 18:04 WBC 8.55 RBC 4.90 Hgb 13.6 Hct 40.4 MCV 82.4 MCH 27.8 MCHC 33.7 RDW Std Deviation 39.7 RDW Coeff of Amirah 13.2 Plt Count 509 H MPV 8.9 Immature Gran % (Auto) 0.2 Neut % (Auto) 75.9 Lymph % (Auto) 18.7 Casey % (Auto) 4.6 Eos % (Auto) 0.4 Baso % (Auto) 0.2 Immature Gran # (Auto) 0.02 Neut # (Auto) 6.49 Lymph # (Auto) 1.60 Casey # (Auto) 0.39 Eos # (Auto) 0.03 Baso # (Auto) 0.02 Sodium 135 L Potassium 3.5 Chloride 101 Carbon Dioxide 23 Anion Gap 11.0 BUN 9 Creatinine 1.01 Est Cr Clr Drug Dosing 74.3 Est GFR ( Amer) 82.9 Est GFR (Non-Af Amer) 71.6 BUN/Creatinine Ratio 9.0 L Glucose 111 H Fasting Glucose Calcium 9.4 Total Bilirubin 0.3 AST 13 L ALT 27 Alkaline Phosphatase 89 Total Protein 8.4 H Albumin 4.1 Globulin 4.3 H Albumin/Globulin Ratio 1.0 Triglycerides Cholesterol LDL Cholesterol, Calc VLDL Cholesterol, Calc HDL Cholesterol Cholesterol/HDL Ratio TSH 1.820 Urine Color Urine Appearance Urine pH Ur Specific [place] Urine Protein Urine Glucose (UA) Urine Ketones Urine Blood Urine Nitrite Urine Bilirubin Urine Urobilinogen Ur Leukocyte Esterase Urine WBC (Auto) Urine RBC (Auto) U Hyaline Cast (Auto) U Epithel Cells (Auto) Urine Bacteria (Auto) POC Ur Test NEG Salicylates Urine Opiates Screen Ur Methadone, Qual Acetaminophen Urine Barbiturates Ur Phencyclidine (PCP) U Amphetamin/Meth Scrn MDMA (Ecstasy) Screen U Benzodiazepines Scrn Ur Cocaine Metabolite U Marijuana (THC) Screen Ethyl Alcohol mg/dL 06/11/19 06/11/19 06/11/19 18:04 18:04 Unknown WBC RBC Hgb Hct MCV MCH MCHC RDW Std Deviation RDW Coeff of Amirah Plt Count MPV Immature Gran % (Auto) Neut % (Auto) Lymph % (Auto) Casey % (Auto) Eos % (Auto) Baso % (Auto) Immature Gran # (Auto) Neut # (Auto) Lymph # (Auto) Casey # (Auto) Eos # (Auto) Baso # (Auto) Sodium Potassium Chloride Carbon Dioxide Anion Gap BUN Creatinine Est Cr Clr Drug Dosing Est GFR ( Amer) Est GFR (Non-Af Amer) BUN/Creatinine Ratio Glucose Fasting Glucose Calcium Total Bilirubin AST ALT Alkaline Phosphatase Total Protein Albumin Globulin Albumin/Globulin Ratio Triglycerides Cholesterol LDL Cholesterol, Calc VLDL Cholesterol, Calc HDL Cholesterol Cholesterol/HDL Ratio TSH Urine Color Urine Appearance Urine pH Ur Specific [place] Urine Protein Urine Glucose (UA) Urine Ketones Urine Blood Urine Nitrite Urine Bilirubin Urine Urobilinogen Ur Leukocyte Esterase Urine WBC (Auto) Urine RBC (Auto) U Hyaline Cast (Auto) U Epithel Cells (Auto) Urine Bacteria (Auto) POC Ur Test Salicylates 3.3 Urine Opiates Screen Neg Ur Methadone, Qual Neg Acetaminophen < 2 L Urine Barbiturates Neg Ur Phencyclidine (PCP) Neg U Amphetamin/Meth Scrn Neg MDMA (Ecstasy) Screen Pos H U Benzodiazepines Scrn Neg Ur Cocaine Metabolite Neg U Marijuana (THC) Screen Neg Ethyl Alcohol mg/dL < 3.0 06/11/19 06/13/19 Unknown 06:44 WBC RBC Hgb Hct MCV MCH MCHC RDW Std Deviation RDW Coeff of Amirah Plt Count MPV Immature Gran % (Auto) Neut % (Auto) Lymph % (Auto) Casey % (Auto) Eos % (Auto) Baso % (Auto) Immature Gran # (Auto) Neut # (Auto) Lymph # (Auto) Casey # (Auto) Eos # (Auto) Baso # (Auto) Sodium Potassium Chloride Carbon Dioxide Anion Gap BUN Creatinine Est Cr Clr Drug Dosing Est GFR ( Amer) Est GFR (Non-Af Amer) BUN/Creatinine Ratio Glucose Fasting Glucose 111 H Calcium Total Bilirubin AST ALT Alkaline Phosphatase Total Protein Albumin Globulin Albumin/Globulin Ratio Triglycerides 420 H Cholesterol 286 H LDL Cholesterol, Calc VLDL Cholesterol, Calc HDL Cholesterol 31 Cholesterol/HDL Ratio 9 TSH Urine Color Yellow Urine Appearance Turbid A Urine pH 5.0 Ur Specific [place] 1.023 Urine Protein 2+ H Urine Glucose (UA) Negative Urine Ketones Negative Urine Blood 2+ H Urine Nitrite Negative Urine Bilirubin Negative Urine Urobilinogen Negative Ur Leukocyte Esterase Negative Urine WBC (Auto) 5-10 H Urine RBC (Auto) 0-4 U Hyaline Cast (Auto) 5-10 H U Epithel Cells (Auto) >30 H Urine Bacteria (Auto) 2+ H POC Ur Test Salicylates Urine Opiates Screen Ur Methadone, Qual Acetaminophen Urine Barbiturates Ur Phencyclidine (PCP) U Amphetamin/Meth Scrn MDMA (Ecstasy) Screen U Benzodiazepines Scrn Ur Cocaine Metabolite U Marijuana (THC) Screen Ethyl Alcohol mg/dL Hospital Course (1) Anxiety: 06/12 -patient reports SI triggered by severe anxiety, which occurred in the context of running out of clonazepam early. She denies overusing it, and states she suspects her neighbor stole it. However, PDMP shows frequent early refills. -Increase quetiapine as below. Continue home dose of clonazepam. Pt asking for dose increase but advised would need to discuss w/ outpatient PA as she has been filling early and concern for overuse. She then said she would just keep her current dose. States she got a lock box for her meds. -Reduce bupropion dose to 100 mg twice daily, as patient reports she has felt more "jittery" since her dose was increased. -Coordinate care with [facility]. -Work on healthy coping skills and behavioral techniques for managing anxiety, as this is chronic and long-standing. Refer for individual therapy. 06/13 - Reporting significant improvement in level of anxiety today - Denies side effects related to medication adjustments - Referrals have been sent for outpatient therapy and case management after discharge 06/14 -discharge to home. -Patient was continued on her home dose of clonazepam, and advised that it is her responsibility to store this medication safely and ensure that no one else has access to it. Also advised of the importance of taking it only as prescribed, and of the risks of misuse/abrupt cessation. Her acute anxiety on admission appears to have been triggered by running out of her clonazepam 10 days early. She states she has a prescription at her pharmacy and will be able to fill it tomorrow. -Bupropion dose decreased as above as may have been exacerbating anxiety. (2) Bipolar affective, depress, unspec: 06/12 -patient is a limited historian, and although she denies any history of manic or psychotic symptoms, she has a documented history of bipolar type I. She has been on Trileptal and bupropion for years, and reports quetiapine has been recently adjusted and has been helpful at higher doses, so is requesting to increase her at bedtime dose which is appropriate. Nursing staff confirms she is supposed to be taking 125 mg at bedtime, so will order that dose here and titrate further as needed. She does not know when she last had fasting labs, so will order cholesterol panel and glucose tomorrow for monitoring on an atypical antipsychotic. -Request records from [facility] and coordinate care. Refer for outpatient therapy. Consider [facility] referral. 06/13 - Reports significant improvement in mood since admission - Fasting glucose and lipid panel ordered for this morning, reviewed with patient - glucose elevated at 111; triglycerides elevated at 420; total cholesterol elevated at 286. - Recommend PCP follow-up to review the above concerns - patient stating she has been treated with medication in the past for high cholesterol - Was agreeable with referrals for outpatient therapy and case management - Phone meeting with will need to be scheduled in order to discuss safety and discharge planning 06/14 -patient has been referred for individual therapy and case management. -Family meeting held with yesterday, who is supportive and denied safety concerns with discharge. Mental Health & Subst Abuse Tx Psychiatrist Date of Appointment with Psychiatrist: 07/12/19 Therapist Name of Therapist: Mai Die Repairer Forging Name of Die Repairer Forging: Denies/None Post Discharge Appointments Primary Care Physician Name Of Family Doctor: Mckenzie Delgado Smoking Cessation Counseling Tobacco Cessation Medication Prescribed at Discharge: Offered & Pt Refused Discharge Plan Discharge Items Patient Disposition: Home - Self-Care Reason For Visit: BIPOLAR DISORDER Discharge Diagnosis: Anxiety due to benzodiazepine withdrawal bipolar disorder NOS Activity: Per Instructions section Non-emergency contact: Primary Care Provider, Psychiatrist, Therapist and Scalp Specialist Call non-emergency contact if: you have any medication questions and your sympto ms worsen Follow-up/Referrals: Mckenzie Jennings, [Primary Care Provider] - Diet: Regular Addtl Attending Provider Instructions: SPECIAL CARE INSTRUCTIONS: 1. Follow through with your scheduled aftercare appointments. If unable to keep an appointment, please call to reschedule. 2. Take your medication only as prescribed. Medication should not be changed or stopped without the approval of your doctor. In the event of worsening symptoms or concerns about side effects, contact your doctor immediately. 3. Utilize new healthy coping skills, anger management skills, and stress management skills learned during your hospitalization. Journal feelings and process them with a support person. Identify stressors or situations that may result in relapse, deterioration or inappropriate behaviors and develop a plan to deal with those issues. 4. If your coping skills are ineffective and you are in crisis, contact your outpatient providers for direction. If unable to reach your providers, please call the [facility] LINE AT or go to the closest Emergency Room. 5. Avoid alcohol and un-prescribed drugs. 6. You have been provided with the Mental Health Advance Directives Pamphlet for your review. AFTERCARE APPOINTMENTS: * Please call your insurance company prior to your scheduled appointment to confirm your aftercare providers are covered. Take your insurance information to your ap pointments. WHO TO CALL AND WHEN: Medical Emergencies: For questions or emergencies related to your hospital stay, please contact the Inpatient Behavioral Health Unit at [phone]. A sub master is on-call 01/02 for the Behavioral Health Unit for emergencies At any time you feel your situation is an emergency, you may also call 911 immediately. Your Doctors Instructions noted above were prepared by provider Harini Luz MD. Pending Studies at Discharge: Yes (UDS + MDMA, confirmatory test pending) Stand-Alone Forms: My [facility] Door 6, Smoking Cessation, Suicide Prevention Resources Medications and DC Order Prescriptions: New quetiapine 25 mg Tablet 25 mg PO HS Qty: 30 RF: 0 quetiapine 100 mg Tablet 100 mg PO HS Qty: 30 RF: 0 bupropion HCl 100 mg Tablet Sustained-Release 12 Hr 100 mg PO BID@0900,1400 Qty: 60 RF: 0 Continued acetaminophen [Tylenol Extra Strength] 500 mg Tablet 500 mg PO Q6H PRN (Reason: Pain) RF: 0 oxcarbazepine [Trileptal] 300 mg Tablet 300 mg PO BID RF: 0 omeprazole 40 mg Capsule,Delayed Release(Dr/Ec) 40 mg PO BID RF: 0 clonazepam [Klonopin] 0.5 mg Tablet 0.5 mg PO DAILY PRN (Reason: Anxiety) RF: 0 clonazepam [Klonopin] 0.5 mg Tablet 0.75 mg PO HS RF: 0 Discontinued quetiapine 25 mg tablet 12.5 mg PO QDL RF: 0 quetiapine 100 mg tablet 100 mg PO HS RF: 0 bupropion HCl [Wellbutrin SR] 150 mg Tablet Sustained-Release 12 Hr See Rx Instructions .ROUTE .COMPLEX RF: 0 quetiapine [Seroquel] 25 mg Tablet 25 mg PO HS RF: 0 Discharge Orders: Discharge Order (Routine); Ordered 06/14/19 Ordered By: Harini Luz Admission Data Admit Date/Time: 06/11/19 20:32 Attending Provider: Harini Luz Admit Provider: Cam Escobar Primary Care Provider: Mckenzie Jennings Coding Level of Care Code 56786 D/C day mgmt > 30 min Diagnoses Anxiety F41.9 Bipolar affective, depress, unspec F31.30 Current episode severity: unspecified
== END 2019-06-14 12:40 | disposition home or self-care (01) | DRG 885 ==
LOC: ED 17:03 → 3S 20:32